=== PATIENT | male | born 1985 | race Caucasian/White ===

== ENCOUNTER 2018-12-23 19:37 | Emergency (ER) | payer OTHER, SELFPAY ==
[2018-12-23 19:45] VITALS: BP 106/55; PULSE 67; RESP 32; TEMP 36.4; O2SAT 100
--- NOTE | 2018-12-23 19:54 | ED.GENADUL_ITS ---
Discharge Plan Disposition Patient Disposition: HOME Condition: Good Discharge Details Chief Complaint: Laceration Clinical Impression: Finger fracture Primary Care Provider: Yosvany Perez ED Provider: Vasile Saunders Home Meds and New Rx's Prescriptions: New hydrocodone-acetaminophen [Palmer] 7.5-325 mg tablet 1 tab PO Q8H PRN (Reason: pain) Qty: 10 RF: 0 cephalexin [Keflex] 500 mg capsule 500 mg PO QID 10 Days Qty: 40 RF: 0 No Action ibuprofen 800 mg tablet 800 mg PO Q8H PRN (Reason: Pain) Qty: 90 RF: 0 Discharge Instructions Instructions: Finger Fracture (ED) Additional Instructions: You have fractured the distal tip of your thumb. Please keep the splint on at all times. Please change the bandage daily. Please take the antibiotic as directed. Please take the pain medication as needed. You can add an additional 500 mg of Tylenol every 6 hours with the pain medication. If you notice any worsening of your symptoms, or any new symptoms such as change in color for your fingertip, change in temperature for your fingertip vomiting, diarrhea, fever, chills, shortness of breath, chest pain, numbness, weakness, or fainting , please return immediately to the emergency department for reevaluation. Please follow up with your primary care provider as soon as possible for reassessment and reevaluation. As always, it was a pleasure participating in your medical care today. Referrals: Julian Longoria MD [ [facility] STAFF PHYSICIAN] - Medical Decision Making This is a 33-year-old male who presents today for evaluation of notable trauma to his right dominant hand on the thumb. He had a crush injury to the distal tip. Notable laceration fracture of both the nail in the distal tip of the thumb. Unable to flex or extend it. Sensation notably diminished. Concern for laceration in conjunction with fracture. We will get an x-ray for further evaluation. Digital block was performed with a lidocaine bupivacaine mixture and the patient tolerated this well. Tetanus is up-to-date. 9:06 PM X-ray shows evidence of fracture of the distal phalanx at the distal tip for the thumb. Patient still has notable difficulty flexing. He is able to slightly extend. The images in case was discussed with Dr. Longoria. He agrees with the current plan of suturing, antibiotics and outpatient follow-up. For simple interrupted sutures were placed, patient tolerated this well. The patient was then bandaged and splinted. We had a long discussion regarding red flags which to immediately return for, including the importance of orthopedic follow-up. I have extensively reviewed the treatment plan and discharge instructions with the patient and their family. I have addressed all patient concerns at this time. The patient and family was made aware of what symptoms to monitor for that would warrant a return to the emergency department. Discussed the plan with the patient and family, they demonstrate verbal understanding and agreement with our assessment and plan at this time. FINDINGS: Bones/joints: Nondisplaced fracture of tuft of first distal phalanx. No subluxation. Soft tissues: Soft tissue swelling about the fracture. IMPRESSION: 1. Fracture of first distal phalanx. 2. Soft tissue swelling. Thank you for allowing us to participate in the care of your patient. Dictated and Authenticated by: Jayden Pearson DO 12/23/2018 8:38 PM Eastern Time ([place] & [place]) HPI General Date/Time Provider Initiated Documentation: 12/23/18 19:50 . HPI Narrative: This is a 33-year-old male who is [id number] who presents today for right thumb pain. Within an hour prior to arrival the patient claims that the distal tip of his right thumb a piece of machinery. He immediately came to the ER for assessment. He is unable to move the thumb secondary to pain in the nature of the injury. He does not feel anything in the tip except for severe pain. He is not on any blood thinners. Tetanus shot was updated within the past 2 years. He denies any pain in the hand, other 4 fingers, wrist or any other component of his body. He denies any other complaints at this time. No other modifying factor. Related Data Home Medications Medication Instructions Recorded Confirmed ibuprofen 800 mg tablet 800 mg PO Q8H PRN #90 tab 11/09/18 11/09/18 cephalexin [Keflex] 500 mg PO QID 10 Days #40 cap 12/23/18 hydrocodone-acetaminophen [Palmer] 1 tab PO Q8H PRN #10 tab 12/23/18 Previous Rx's Medication Instructions Recorded ibuprofen 800 mg tablet 800 mg PO Q8H PRN #90 tab 11/09/18 cephalexin [Keflex] 500 mg PO QID 10 Days #40 cap 12/23/18 hydrocodone-acetaminophen [Palmer] 1 tab PO Q8H PRN #10 tab 12/23/18 Allergies Allergy/AdvReac Type Severity Reaction Status Date / Time No Known Allergies Allergy Verified 11/09/18 13:02 General Stated Complaint: Laceration THAIS: 3 Review of Systems Review of Systems All systems reviewed & are unremarkable except as noted in HPI and below PFSH Social History (Updated 11/09/18 @ 18:24 by Sandra Bergman NP) Smoking/Tobacco Use Status: Current every day Tobacco Type: cigarettes Smoking cigarettes per day: 10 Alcohol Intake: current Alcohol Intake frequency: 3 or more drinks per day Drug use: Occasionally Substance use type: former substance user Date of last use: 2016 - percocet and marijuana Counseling given: Yes Do you feel safe at home: Yes Do you feel safe in your relationship?: Yes Exam Narrative Exam Narrative: 1.Const: Well-nourished, Well-developed, appearing stated age 2.Eyes: PERRL, no conjunctival injection, and symmetrical lids. 3.ENT: Atraumatic external nose and ears. Moist MM. Neck: Symmetric, trachea midline, No thyromegaly. 4.CVS: +S1/S2, No murmurs or gallops. Peripheral pulses 2+ and equal in all extremities. Brisk capillary refill in all extremities. 5.RESP: Unlabored respiratory effort. Clear to auscultation bilaterally. No wheezes rales or rhonchi 6.GI: Soft, Nontender/Nondistended, No hepatosplenomegaly. No guarding or rebound. 7.MSK: Notable deformity of the patient's right thumb. The nail is bisected with a laceration extending towards the palmar aspect of the hand midline for the thumb. Total length of laceration including the nail is roughly 2 cm. Patient is unable to flex or extend the thumb. Moderate pain at the interphalangeal joint as well as the metacarpal phalangeal joint. Minimal bleeding. All other fingers are normal with no signs of trauma, decreased sensation, or other abnormality. Normal flexion and extension of all fingers. No tenderness in the hand or at the anatomical snuffbox. 8.Skin: Please refer to musculoskeletal for description. 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 Sensation grossly intact, no focal neurologic deficits, except for a lack of sensation in the distal tip of the finger. 10.Psych: (AAO) x3. Appropriate mood and affect Course Vital Signs Temperature 36.4 C 12/23/18 19:45 Pulse 67 12/23/18 19:45 Respiratory Rate 32 H 12/23/18 19:45 Blood Pressure 106/55 L 12/23/18 19:45 Pulse Oximetry 100 12/23/18 19:45 Temperature 36.4 C 12/23/18 19:45 Pulse 67 12/23/18 19:45 Respiratory Rate 32 H 12/23/18 19:45 Respiratory Effort 12/23/18 19:48 Blood Pressure 106/55 L 12/23/18 19:45 Pulse Oximetry 100 12/23/18 19:45 Oxygen Delivery Method Room Air 12/23/18 19:45 Oxygen Flow Rate 0 12/23/18 19:45 Pain Level 10 12/23/18 19:48
[2018-12-23 20:04] VITALS: BP 97/48; PULSE 65; RESP 20; O2SAT 100
--- NOTE | 2018-12-23 20:17 | DI.RAD_ITS ---
SYMPTOM/DIAGNOSIS: CRUSH INJURY, PAIN RIGHT THUMB: Three views were obtained. There is mildly comminuted, mildly displaced fracture of the tuft of the distal phalanx of the thumb with associated soft tissue defect. No additional fracture is seen.
[2018-12-23] MEDS: Ibuprofen 800 MG TAB PO (20:24)
[2018-12-23] MEDS: Cephalexin 500 MG CAP (20:24)
[2018-12-23] MEDS: Acetaminophen 500 MG TAB 1000 MG PO (20:24)
--- NOTE | 2018-12-23 20:38 | DI.VRAD_ITS ---
EXAM: XR Right Finger(s) EXAM DATE/TIME: 12/23/2018 7:51 PM CLINICAL HISTORY: 33 years old, male; Other: Crush injury to RT thumb TECHNIQUE: Imaging protocol: XR Right fingers. Views: Minimum 2 views. COMPARISON: No relevant prior studies available. FINDINGS: Bones/joints: Nondisplaced fracture of tuft of first distal phalanx. No subluxation. Soft tissues: Soft tissue swelling about the fracture. IMPRESSION: 1. Fracture of first distal phalanx. 2. Soft tissue swelling. Dictated and Authenticated by: Jayden Pearson MD. Ordering:YUKI Burnette MD
--- NOTE | 2018-12-23 20:45 | NUR.NOTE ---
Nursing Note: pt soaking in hepaclens.
[2018-12-23 21:04] VITALS: BP 103/49; PULSE 64; RESP 20; O2SAT 98
[2018-12-23 21:27] VITALS: BP 103/49; PULSE 64; RESP 20; O2SAT 98
== END 2018-12-23 21:27 | disposition home or self-care (01) ==
PROVIDERS: Emergency Provider Student in an Organized Health Care Education/Training Program; PCP Family Medicine
DX: S67.01XA Crushing injury of right thumb, initial encounter (principal); S62.524A Nondisplaced fracture of distal phalanx of right thumb, initial encounter for closed fracture; S61.111A Laceration without foreign body of right thumb with damage to nail, initial encounter; W23.0XXA Caught, crushed, jammed, or pinched between moving objects, initial encounter; R20.0 Anesthesia of skin; Y99.0 Civilian activity done for income or pay
CPT/HCPCS: 12001; 26750; 73140

== ENCOUNTER 2019-07-30 00:10 | Emergency (ER) | payer OTHER, SELFPAY ==
[2019-07-30 00:31] VITALS: BP 120/58; PULSE 66; RESP 16; TEMP 36.9; O2SAT 98
--- NOTE | 2019-07-30 00:41 | ED.GENADUL_ITS ---
Discharge Plan Disposition Patient Disposition: HOME Condition: Good Discharge Details Chief Complaint: RespSymp Clinical Impression: URI (upper respiratory infection), Otitis media, Chest congestion Primary Care Provider: Yosvany Perez ED Provider: Vasile Saunders Home Meds and New Rx's Prescriptions: New amoxicillin-pot clavulanate [Augmentin] 875-125 mg tablet 1 tab PO BID Qty: 14 RF: 0 loratadine 10 mg capsule 10 mg PO DAILY Qty: 20 RF: 0 Discharge Instructions Instructions: Otitis Media (ED), Upper Respiratory Infection (ED) Additional Instructions: At this time you have evidence of a mild ear infection, as well as notable congestion. The antibiotic that I will use for your ear infection would also cover any pneumonia, however I do not see any evidence of pneumonia at this time. I would recommend stopping smoking to the best of your ability as soon as possible. If you notice any worsening of your symptoms, or any new symptoms such as vomiting, diarrhea, fever, chills, shortness of breath, chest pain, numbness, weakness, or fainting , please return immediately to the emergency department for reevaluation. Please follow up with your primary care provider as soon as possible for reassessment and reevaluation. As always, it was a pleasure participating in your medical care today. Referrals: Yosvany Perez. [Primary Care Provider] - Discharge Data Discharge Date/Time-TO BE ENTERED AT DEPARTURE: 07/30/19 00:55 Medical Decision Making 34-year-old male with past medical history of tobacco abuse who presents today for evaluation of cough, congestion, ear pain and mild sore throat. He denies any fever but does admit to intermittent chills. He denies any hemoptysis but does admit to intermittent brown sputum. He denies any chest pain, chest tightness, or significant shortness of breath. Denies PE risk factors such as recent long car rides, immobilization, recent surgery, prior history of DVT or PE, family history of PE or DVT, morbid obesity, exogenous estrogen and smoking, hemoptysis, history of cancer. The patient denies any recent foreign travel or contact with recent immigrants, Travelers, or peoples of [place] or [facility]. The patient denies any recent travel to high risk countries or high risk areas in the [place], or other areas of noted or significant coronavirus infection. No other complaints at this time. Physical exam is notably unremarkable aside for his ENT exam which shows mild erythema the posterior oropharynx, and consistent with strep, peritonsillar abscess or other significant abnormality. He does have mild effusion and minimal bulging of his tympanic membranes bilaterally. Signs and symptoms clinically consistent with mild otitis media, bedside ultrasound shows no evidence of significant consolidation, or other abnormality for lung exam. We did discuss options of chest x-ray however the patient would like to hold off on any radiographic imaging at this time. Patient will be treated with loratadine, Augmentin for his ear infection, he has been given an inhaler here in the ED with an spacer. Recommended stopping smoking. Discussed red flags for which to return. I have extensively reviewed the treatment plan and discharge instructions with the patient. I have addressed all patient concerns at this time. The patient was made aware of what symptoms to monitor for that would warrant a return to the emergency department. Discussed the plan with the patient, they demonstrate verbal understanding and agreement with our assessment and plan at this time. HPI General Date/Time Provider Initiated Documentation: 07/30/19 00:31 . HPI Narrative: 34-year-old male with past medical history of tobacco abuse who presents today for evaluation of cough, congestion, ear pain and mild sore throat. He denies any fever but does admit to intermittent chills. He denies any hemoptysis but does admit to intermittent brown sputum. He denies any chest pain, chest tightness, or significant shortness of breath. Denies PE risk factors such as recent long car rides, immobilization, recent surgery, prior history of DVT or PE, family history of PE or DVT, morbid obesity, exogenous estrogen and smoking, hemoptysis, history of cancer. The patient denies any recent foreign travel or contact with recent immigrants, Travelers, or peoples of [place] or [facility]. The patient denies any recent travel to high risk countries or high risk areas in the [place], or other areas of noted or significant coronavirus infection. Related Data Home Medications Medication Instructions Recorded Confirmed amoxicillin-pot clavulanate 1 tab PO BID #14 tab 07/30/19 [Augmentin] loratadine 10 mg PO DAILY #20 cap 07/30/19 Previous Rx's Medication Instructions Recorded amoxicillin-pot clavulanate 1 tab PO BID #14 tab 07/30/19 [Augmentin] loratadine 10 mg PO DAILY #20 cap 07/30/19 Allergies Allergy/AdvReac Type Severity Reaction Status Date / Time No Known Allergies Allergy Verified 03/14/19 15:23 General Stated Complaint: RespSymp THAIS: 4 Review of Systems All systems reviewed & are unremarkable except as noted in HPI and below PFSH Social History Smoking/Tobacco Use Status: Current every day Tobacco Type: cigarettes Alcohol Intake: current Alcohol Intake frequency: 3 or more drinks per day Drug use: Occasionally Substance use type: former substance user Date of last use: 2016 - percocet and marijuana Counseling given: Yes Current gender identity: male Do you feel safe at home: Yes Do you feel safe in your relationship?: Yes Exam Narrative Exam Narrative: 1.Const: Well-nourished, Well-developed, appearing stated age 2.Eyes: PERRL, no conjunctival injection, and symmetrical lids. 3.ENT: Atraumatic external nose and ears. Moist MM. Neck: Symmetric, trachea midline, No thyromegaly. Mild erythema in the posterior oropharynx. Tympanic membranes bilaterally demonstrate mild redness, mild effusion, minimal bulging. Patient demonstrates good movement of cervical neck. There is no nuchal rigidity, no nuchal tenderness. Patient is able to flex the neck without any difficulty or significant pain. Negative Kernig's and Brudzinski sign. 4.CVS: +S1/S2, No murmurs or gallops. Peripheral pulses 2+ and equal in all extremities. Brisk capillary refill in all extremities. 5.RESP: Unlabored respiratory effort. No significant wheezes rales or rhonchi. Bedside ultrasound showed no evidence of significant B-lines or consolidation. 6.GI: Soft, Nontender/Nondistended, No hepatosplenomegaly. No guarding or rebound. 7.MSK: Normocephalic/Atraumatic, Extremities w/o deformity or ttp No cyanosis or clubbing, Normal movement of all extremities 8.Skin: Warm, Dry. No rashes or lesions. 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 Sensation grossly intact, no focal neurologic deficits. 10.Psych: (AAO) x3. Appropriate mood and affect Course Vital Signs Vital signs: Vital Signs Temperature 36.9 C 07/30/19 00:31 Pulse 66 07/30/19 00:31 Respiratory Rate 16 07/30/19 00:31 Blood Pressure 120/58 L 07/30/19 00:31 Pulse Oximetry 98 07/30/19 00:31 Temperature 36.9 C 07/30/19 00:31 Temperature Source Skin 07/30/19 00:31 Pulse 66 07/30/19 00:31 Respiratory Rate 16 07/30/19 00:31 Respiratory Effort 07/30/19 00:35 Blood Pressure 120/58 L 07/30/19 00:31 Blood Pressure Position Sitting 07/30/19 00:31 Pulse Oximetry 98 07/30/19 00:31 Oxygen Delivery Method Room Air 07/30/19 00:31 Oxygen Flow Rate 0 07/30/19 00:31 Comment 07/30/19 00:31
[2019-07-30] MEDS: Inhaler, Assist Device 1 EACH MC (00:52)
[2019-07-30] MEDS: Albuterol HFA 8 GM 60 PUFF INH IH (00:52)
== END 2019-07-30 00:55 | disposition home or self-care (01) ==
PROVIDERS: Emergency Provider Student in an Organized Health Care Education/Training Program; PCP Family Medicine
DX: J06.9 Acute upper respiratory infection, unspecified (principal); H66.93 Otitis media, unspecified, bilateral; R09.89 Other specified symptoms and signs involving the circulatory and respiratory systems; F17.210 Nicotine dependence, cigarettes, uncomplicated
CPT/HCPCS: 99283

== ENCOUNTER 2019-08-15 03:33 | Emergency (ER) | payer OTHER, SELFPAY ==
[2019-08-15 03:37] VITALS: BP 109/76; PULSE 73; RESP 16; TEMP 36.4; O2SAT 98
--- NOTE | 2019-08-15 03:43 | ED.GENADUL_ITS ---
Discharge Plan Disposition Patient Disposition: HOME Condition: Stable Discharge Details Chief Complaint: Laceration Clinical Impression: Laceration of forearm, right Primary Care Provider: Yosvany Perez ED Provider: Sanchez Pardo Home Meds and New Rx's Prescriptions: No Action No Known Home Meds RF: 0 Discharge Instructions Additional Instructions: if you have spreading redness from the wound or yellow/white discharge return to the emergency department several times a day and when it gets dirty gently clean with soap and water keep covered with dry dressing such as bandaid until healed Medical Decision Making 34 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 No other trauma, no loc. He has a 3cm superficial laceration that does not require sutures. Will have nursing place steri strip and return precautions given Differential Diagnosis Differential Diagnosis: laceration, abrasion HPI General Mode of arrival: ambulatory . Date/Time Provider Initiated Documentation: 08/15/19 03:34 . Limitations to Documentation: no limitations . Information obtained by: patient . History of Present Illness 34 year old M presents to the emergency department with the chief complaint of right forearm laceration, described as moderate, and it has been constant. No relieving factors improve symptom(s), No exacerbating factors reported . Patient did receive the following treatments prior to arrival, none Related Data Home Medications Medication Instructions Recorded Confirmed Unknown [No Known Home Meds] 08/15/19 08/15/19 Allergies Allergy/AdvReac Type Severity Reaction Status Date / Time No Known Allergies Allergy Verified 03/14/19 15:23 General Stated Complaint: Laceration THAIS: 4 Review of Systems All systems reviewed & are unremarkable except as noted in HPI and below Constitutional Constitutional: Denies chills, Denies fever(s) and Denies weakness Cardiovascular Cardiovascular: Denies chest pain and Denies dyspnea Respiratory Respiratory: Denies cough and Denies dyspnea Gastrointestinal Gastrointestinal: Denies abdominal pain, Denies nausea and Denies vomiting Musculoskeletal Musculoskeletal: Denies joint swelling Neurologic Neurologic: Denies weakness [facility] Social History Smoking/Tobacco Use Status: Current every day Tobacco Type: cigarettes Alcohol Intake: current Alcohol Intake frequency: 3 or more drinks per day Drug use: Occasionally Substance use type: former substance user Date of last use: 2017 - percocet and marijuana Counseling given: Yes Current gender identity: male Do you feel safe at home: Yes Do you feel safe in your relationship?: Yes Exam Const General: no acute distress Orientation: alert HENMT Head: normal to inspection Ears: external ears normal General nose exam: external nose normal Mouth: moist mucous membranes Eyes General: appearance normal, both eyes and all related structures Neck Neck: normal visual inspection Resp Effort & Inspection: normal respiratory effort and able to speak in complete sentences Cardio Rate: regular rate Skin General skin exam: no rashes or lesions noted Neuro General: patient alert and patient oriented x3 Extrem General: full ROM and capillary refill normal Psych Mental Status: mental status grossly normal Course Vital Signs Vital signs: Vital Signs Temperature 36.4 C L 08/15/19 03:37 Pulse 73 08/15/19 03:37 Respiratory Rate 16 08/15/19 03:37 Blood Pressure 109/76 08/15/19 03:37 Pulse Oximetry 98 08/15/19 03:37 Temperature 36.4 C L 08/15/19 03:37 Pulse 73 08/15/19 03:37 Respiratory Rate 16 08/15/19 03:37 Respiratory Effort 08/15/19 03:39 Blood Pressure 109/76 08/15/19 03:37 Blood Pressure Position Sitting 08/15/19 03:37 Pulse Oximetry 98 08/15/19 03:37 Oxygen Delivery Method Room Air 08/15/19 03:37 Oxygen Flow Rate 0 08/15/19 03:37
--- NOTE | 2019-08-15 03:54 | NUR.NOTE ---
right forearm wound cleaned with NS. Steri strips, dsd applied.,
== END 2019-08-15 03:55 | disposition home or self-care (01) ==
LOC: ER 03:59
PROVIDERS: Emergency Provider Emergency Medicine; PCP Family Medicine
DX: S51.811A Laceration without foreign body of right forearm, initial encounter (principal); W31.9XXA Contact with unspecified machinery, initial encounter; Y99.0 Civilian activity done for income or pay
CPT/HCPCS: 99282

== ENCOUNTER 2020-03-18 12:59 | Emergency (ER) | payer SELFPAY ==
[2020-03-18 13:05] VITALS: BP 112/75; PULSE 67; RESP 16; TEMP 36.4; O2SAT 99
--- NOTE | 2020-03-18 13:15 | DI.RAD_ITS ---
EXAM: XR THUMB RT CLINICAL HISTORY: pain, jammed thumb. TECHNIQUE: 2D digital imaging was performed. COMPARISON: CR XR thumb RT from 12/23/2018 FINDINGS: BONES: There is an osseous fragment at the tip of the distal phalanx of the thumb. This may represen t an acute fracture fragment or an old unhealed fracture. Deformity of the terminal tuft of the thum b may reflect sequelae from the patient's prior fracture from 12/23/2018. Acute nondisplaced fracture cannot be excluded. No bony destructive lesion is seen. JOINTS: No dislocation present. SOFT TISSUE: Normal. IMPRESSION: Deformity of the distal phalanx of the thumb which may reflect chronic unhealed fracture versus acute fracture. DATA REPOSITORY: RADIATION DOSE DELIVERED:
--- NOTE | 2020-03-18 13:20 | W.ED.GENAD ---
Discharge Plan Disposition Patient Disposition: HOME Condition: Stable Discharge Details Clinical Impression: Sprain of metacarpophalangeal joint of right thumb, initial encounter Primary Care Provider: Yosvany Perez ED Provider: Fantasma Mclean Home Meds and New Rx's Prescriptions: No Action No Known Home Meds RF: 0 Discharge Instructions Instructions: Skier's Thumb (ED) Additional Instructions: Please take ibuprofen over the counter. Take 600mg by mouth every 6 hours as needed for pain. Please use splint for the next 1 week. Keep splint clean, dry, intact. No use of right hand until pain completely resolves. Please contact your primary care physician to arrange follow-up. Return to the ER for any worsening or new concerning symptoms. Medical Decision Making 34-year-old male here after jamming his right thumb 3 days ago with increasing pain and swelling. Tender right first MCP. No tenderness distal digit. Neurovascular intact distally. He is able to flex oppose thumb but with pain. X-ray of the right thumb reviewed and interpreted by radiology: IMPRESSION: Lucencies in the distal aspect of the distal phalanx of the thumb may be due to acute fracture or unhealed chronic fracture. Thumb splint was made with fiberglass and applied by me. Patient neurovascular intact distally post splint application. Usual customary discharge instructions reviewed with the patient. HPI General Mode of arrival: ambulatory. Date/Time Provider Initiated Documentation: 03/18/20 13:05. Limitations to Documentation: no limitations. Information obtained by: patient. HPI Narrative: 34-year-old male presents with chief complaint of thumb pain. Patient notes 3 days ago he tripped and fell and landed on his right thumb and jammed it. He initially was able to move his thumb but it become more stiff and painful and now has limited flexion. No associated numbness or tingling. No other injury. Of note patient did fracture this time about a year ago. Related Data Home Medications Medication Instructions Recorded Confirmed Unknown [No Known Home Meds] 03/18/20 03/18/20 Allergies Allergy/AdvReac Type Severity Reaction Status Date / Time No Known Allergies Allergy Verified 03/18/20 13:09 General Stated Complaint: Orthopedic THAIS: 4 Review of Systems Musculoskeletal Musculoskeletal: Reports as per HPI Neurologic Neurologic: Reports as per HPI [facility] Medical History (Updated 03/18/20 @ 14:12 by Fantasma Mclean MD) Seasonal allergic rhinitis Family History Mother Substance abuse Heart disease Father No problems noted. Sister No problems noted. Brother No problems noted. Daughter No problems noted. Daughter No problems noted. Social History Smoking/Tobacco Use Status: Current every day Tobacco Type: cigarettes Smoking risk assessment performed?: Yes Alcohol Intake: current Alcohol Intake frequency: a few times a month Drug use: Occasionally Substance use type: former substance user Date of last use: 2016 - percocet and marijuana Counseling given: Yes Current gender identity: male Do you feel safe at home: Yes Do you feel safe in your relationship?: Yes Exam Const General: cooperative and no acute distress Extrem Right upper extremity: hand (Thumb tender to palpation MCP with swelling, limited ROM secondary to pain) Details: neuromotor exam normal and neurosensory exam normal; no unusual warmth Course Vital Signs Vital signs: Vital Signs Temperature 36.4 C L 03/18/20 13:05 Pulse 67 03/18/20 13:05 Respiratory Rate 16 03/18/20 13:05 Blood Pressure 112/75 03/18/20 13:05 Pulse Oximetry 99 03/18/20 13:05 Temperature 36.4 C L 03/18/20 13:05 Temperature Source Skin 03/18/20 13:05 Pulse 67 03/18/20 13:05 Respiratory Rate 16 03/18/20 13:05 Respiratory Effort Non-Labored 03/18/20 13:05 Blood Pressure 112/75 03/18/20 13:05 Blood Pressure Position Sitting 03/18/20 13:05 Pulse Oximetry 99 03/18/20 13:05 Oxygen Delivery Method Room Air 03/18/20 13:05 Oxygen Flow Rate 0 03/18/20 13:05 Pain Level 5 03/18/20 13:09
--- NOTE | 2020-03-18 13:50 | DI.VRAD_ITS ---
PROCEDURE INFORMATION: Exam: XR Right Finger(s) Exam date and time: 03/18/2020 1:16 PM Age: 34 years old Clinical indication: Injury or trauma; Other: Jammed thumb; Work related; Blunt trauma (contusions or hematomas); Finger; Right TECHNIQUE: Imaging protocol: XR Right fingers. Views: Minimum 2 views. COMPARISON: CR XR thumb RT 12/23/2018 8:07 PM FINDINGS: Bones/joints: Lucencies in the distal aspect of the distal phalanx of the thumb may be due to acute fracture or unhealed chronic fracture. . Soft tissues: Soft tissue swelling of the thumb IMPRESSION: Lucencies in the distal aspect of the distal phalanx of the thumb may be due to acute fracture or unhealed chronic fracture. . Dictated and Authenticated by: Marlen Dia MD. Ordering:ALON Meek MD
== END 2020-03-18 14:21 | disposition home or self-care (01) ==
PROVIDERS: Emergency Provider Student in an Organized Health Care Education/Training Program; PCP Family Medicine
DX: S63.641A Sprain of metacarpophalangeal joint of right thumb, initial encounter (principal); W01.0XXA Fall on same level from slipping, tripping and stumbling without subsequent striking against object, initial encounter
CPT/HCPCS: 29130; 99283; 73140

== ENCOUNTER 2020-07-05 14:42 | Emergency (ER) | payer SELFPAY ==
[2020-07-05 14:48] VITALS: BP 132/86; PULSE 68; RESP 20; TEMP 36.6; O2SAT 98
--- NOTE | 2020-07-05 15:16 | ED.GENADUL_ITS ---
Discharge Plan Disposition Patient Disposition: HOME Condition: Good Discharge Details Clinical Impression: Dental infection Primary Care Provider: Yosvany Perez ED Provider: Tana Wilson Home Meds and New Rx's Prescriptions: New penicillin V potassium 500 mg tablet 500 mg PO QID Qty: 40 RF: 0 No Action acetaminophen 500 mg Tablet 500 mg PO QID PRNRF: 0 ibuprofen 200 mg Tablet 600 mg PO Q6H PRNRF: 0 Discharge Instructions Instructions: Dental Abscess (ED) Additional Instructions: [facility] Take antibiotic as prescribed until completed Gargling with warm salt water me help your pain Ibuprofen 600 mg every 8 hours with food Tylenol 650 mg every 4-6 hours Medical Decision Making Nerve block was attempted, and patient did not have analgesia with middle alveolar nerve block I did give the patient 4 tablets of oxycodone and penicillin for home No clinical evidence of facial cellulitis I did discuss risk of addiction and patient consented to these risks No clinical evidence of Daniel's angina, will follow up with dentist Differential Diagnosis Differential Diagnosis: Dental abscess, dental fracture, Daniel's angina, facial cellulitis Medical Records Medical records reviewed: Yes I reviewed the patient's medical records. HPI This 35-year-old male presents with reports of right-sided abdominal pain. Denies chest pain or shortness of breath. Pain for the past 4 days. He states: However he is been gargling with hydrogen peroxide . And he states that actually improved. He denies dizziness or weakness. Denies fever or chills. Pain with chewing reportedly. General Date/Time Provider Initiated Documentation: 07/05/20 14:44 . Related Data Home Medications Medication Instructions Recorded Confirmed acetaminophen 500 mg PO QID PRN 07/05/20 07/05/20 ibuprofen 600 mg PO Q6H PRN 07/05/20 07/05/20 penicillin V potassium 500 mg PO QID #40 tab 07/05/20 Previous Rx's Medication Instructions Recorded penicillin V potassium 500 mg PO QID #40 tab 07/05/20 Allergies Allergy/AdvReac Type Severity Reaction Status Date / Time No Known Allergies Allergy Verified 07/05/20 14:54 General Stated Complaint: DentalOral THAIS: 4 Review of Systems Narrative: Review of systems obtained x7 aside from where indicated in HPI, specifically no chest pain, shortness of breath, difficulty swallowing All systems reviewed & are unremarkable except as noted in HPI and below PFSH Medical History (Updated 07/05/20 @ 15:44 by VICENTA Rich) Seasonal allergic rhinitis Family History Mother Substance abuse Heart disease Father No problems noted. Sister No problems noted. Brother No problems noted. Daughter No problems noted. Daughter No problems noted. Social History Smoking/Tobacco Use Status: Current every day Tobacco Type: cigarettes Smoking risk assessment performed?: Yes Alcohol Intake: current Alcohol Intake frequency: a few times a month Drug use: Occasionally Substance use type: former substance user Date of last use: 2016 - percocet and marijuana Counseling given: Yes Current gender identity: male Do you feel safe at home: Yes Do you feel safe in your relationship?: Yes Exam Const General: cooperative HENMT Teeth image: 1. Fracture noted, no evidence of deep space infection, no trismus, uvula midline, no soft palate induration Resp Effort & Inspection: normal respiratory effort Cardio Rate: regular rate Rhythm: regular rhythm Course Vital Signs Vital signs: Vital Signs Temperature 36.6 C 07/05/20 14:48 Pulse 68 07/05/20 14:48 Respiratory Rate 20 07/05/20 14:48 Blood Pressure 132/86 07/05/20 14:48 Pulse Oximetry 98 07/05/20 14:48 Temperature 36.6 C 07/05/20 14:48 Temperature Source Oral 07/05/20 14:48 Pulse 68 07/05/20 14:48 Respiratory Rate 20 07/05/20 14:48 Respiratory Effort Non-Labored 07/05/20 14:52 Blood Pressure 132/86 07/05/20 14:48 Blood Pressure Position Sitting 07/05/20 14:48 Pulse Oximetry 98 07/05/20 14:48 Oxygen Delivery Method Room Air 07/05/20 14:48 Oxygen Flow Rate 0 07/05/20 14:48 Pain Level 7 07/05/20 14:48
[2020-07-05] MEDS: Penicillin V POTASSIUM 500 MG TAB, 4 TABS/BTL PO (16:05)
== END 2020-07-05 16:14 | disposition home or self-care (01) ==
PROVIDERS: Emergency Provider Physician Assistant; PCP Family Medicine
DX: K04.7 Periapical abscess without sinus (principal)
CPT/HCPCS: 99283

== ENCOUNTER 2020-07-06 11:14 | Emergency (ER) | payer SELFPAY ==
[2020-07-06 11:20] VITALS: BP 118/73; PULSE 75; RESP 20; TEMP 37.3; O2SAT 98
--- NOTE | 2020-07-06 11:25 | ED.GENADUL_ITS ---
Discharge Plan Disposition Patient Disposition: HOME Condition: Stable Discharge Details Clinical Impression: Dental infection, Dental abscess Primary Care Provider: Yosvany Perez ED Provider: Holli Santiago Iraan Meds and New Rx's Prescriptions: New amoxicillin-pot clavulanate [Augmentin] 875-125 mg tablet 1 tab PO BID Qty: 14 RF: 0 oxycodone 5 mg tablet 5 mg PO QID PRN (Reason: pain) Qty: 5 RF: 0 Continued acetaminophen 500 mg Tablet 500 mg PO QID PRNRF: 0 ibuprofen 200 mg Tablet 600 mg PO Q6H PRNRF: 0 Discontinued penicillin V potassium 500 mg tablet 500 mg PO QID Qty: 40 RF: 0 Discharge Instructions Instructions: Dental Abscess (ED) Additional Instructions: Your abscess was drained here today. We stop the penicillin take the Augmentin as prescribed. Even if symptoms improve, please take the entire course. Please encourage water intake. [place] your teeth frequently. Please follow-up as soon as possible with your dentist. A list of local dentist is attached. You may continue to use Tylenol and/or ibuprofen as needed for discomfort. Please take as directed. You may also augment this with the oxycodone as prescribed. Do not drive while taking this medication. Keep this in a safe place and take only as directed if you develop fever/chills, increased swelling or other new/worsening symptoms please seek care urgently once again. Referrals: Yosvany Perez. [Primary Care Provider] - Discharge Data Discharge Date/Time-TO BE ENTERED AT DEPARTURE: 07/06/20 14:05 Medical Decision Making Patient is a 35-year-old male presenting today with chief complaint of right upper dental pain. He was seen here yesterday at which time he was started on penicillin and was given oxycodone for pain management. No abscess was noted at that time. Patient followed up with his primary care today who was concerned that patient had swelling of the hard palate. [place] the patient should have imaging and possible drainage. Patient denies any fevers or chills. The pain has progressively worsened since being evaluated yesterday. On exam, patient appears nontoxic. Vital signs are stable. He has poor dentition with a broken #5 tooth. Lingual aspect she does have a fluctuant area, this does appear fairly small. No erythema, no drainage. Patient is tender over this area. The patient symptoms seem to have significantly worsened over the past 24 hours despite appropriate antibiotic treatment, I do feel that imaging would be warranted as was initially discussed with by primary care for further evaluation. Patient has no nuchal rigidity, no meningismus. No pain over the sinuses. No appreciable external swelling. Posterior oropharynx without significant abnormality, no tonsillar swelling, uvula is midline, no trismus. And I also discussed the block with drainage. Labs reviewed. Patient is leukocytosis white count 14. CMP without significant abnormality. FINDINGS: There is mucosal thickening in the right maxillary sinus. There is mild mucosal thickening in the left sphenoid and a few bilateral maxillary sinuses as well as the frontal sinus on the right. The mastoid air cells appear clear. The vasculature appears normal. The visualized portions of the brain are unremarkable. The cervical spine appears intact. There is no narrowing of the airway. The epiglottis appears normal. The visualized portions of the brain are unremarkable. The orbits appear normal. The parotid and submandibular glands appear normal. There have been multiple tooth extractions. There is a lucency around the roots of the left 1st mandibular molar tooth. There is an obvious dental cavity. There is a question of a small adjacent abscess lateral to the mandible at this level. The left 2nd mandibular molar tooth also shows a dental lionel. There is a dental lionel seen in 1st bicuspid of the right maxilla. There is a periapical lucency. Other dental caries are seen in the maxillary teeth which do not show apical lucencies. IMPRESSION: Multiple dental caries. Apical lucencies around the left 1st mandibular molar and right 1st maxillary bicuspid. Question of a small abscess adjacent to the left side of the mandible. I discussed the findings with the patient. The abscess question on the left side of the mandible is not not correlated clinically. Patient continues to have findings suggest a abscess over the hard palate in the right upper aspect adjacent to the #5 tooth. Patient I did discuss risk/benefits of the block and he is declined at this time. Would prefer topical anesthetic and needle aspiration. Please see procedure note. Patient I discussed risk/benefits as well as expected procedural steps associated with drainage. He did tolerate this fairly well. I was unable to aspirate any fluid. However, after the initial laceration, I did have the patient swish and spit frequently and try to second any discharge that may be coming out. He was able to do so himself that he had a taken discharge from [facility] and noted that the area of swelling did shrink in size. Patient be transitioned to Augmentin. Encourage hydration. Advised Tylenol and/or ibuprofen as needed for discomfort. Patient has been having diff iculty sleeping associated with his discomfort and did run out of his oxycodone he was prescribed yesterday. Will refill #5 for the patient. Advised he Does not drive while take this medication. We discussed safe practices associated with this medication. I encourage close follow-up with the dentist. He states that he has been working on this but was unable to get a evaluation in the next few weeks. Return precautions were discussed. All questions concerns were addressed and he is in agreement this plan. HPI General Mode of arrival: ambulatory . Date/Time Provider Initiated Documentation: 07/06/20 11:22 . Limitations to Documentation: no limitations . Information obtained by: patient, RN notes reviewed and old records reviewed . History of Present Illness 35 year old M presents to the emergency department with the chief complaint of right upper dental pain, described as moderate, with intensity rated at 5. Quality is described as aching, and is localized to the mouth. Patient reports no radiation. Patient started experiencing this day(s) and it has been constant. Medication improves symptom(s), No exacerbating factors reported . Patient notes denies fever/chills, nausea/vomiting and rash. Patient did receive the following treatments prior to arrival, other (penicillin and oxycodone) Related Data Home Medications Medication Instructions Recorded Confirmed acetaminophen 500 mg PO QID PRN 07/05/20 07/06/20 ibuprofen 600 mg PO Q6H PRN 07/05/20 07/06/20 amoxicillin-pot clavulanate 1 tab PO BID #14 tab 07/06/20 [Augmentin] oxycodone 5 mg PO QID PRN #5 tab 07/06/20 Previous Rx's Medication Instructions Recorded amoxicillin-pot clavulanate 1 tab PO BID #14 tab 07/06/20 [Augmentin] oxycodone 5 mg PO QID PRN #5 tab 07/06/20 Allergies Allergy/AdvReac Type Severity Reaction Status Date / Time No Known Allergies Allergy Verified 07/06/20 11:24 General Stated Complaint: DentalOral THAIS: 3 Review of Systems Constitutional Constitutional: Reports as per HPI, Denies chills, Denies fatigue, Denies fever(s), Denies headache(s) and Denies poor appetite Eyes Eyes: Denies change in vision and Denies irritation ENT Ears, Nose, Mouth, and Throat: Reports as per HPI, Reports dental pain, Denies dysphagia, Denies dizziness, Denies dry mouth, Denies ear discharge, Denies otalgia, Reports facial pain, Denies headache(s), Denies hoarseness, Denies lip swelling, Denies nasal congestion, Denies odynophagia and Denies sore throat Cardiovascular Cardiovascular: Reports as per HPI and Denies chest pain Respiratory Respiratory: Reports as per HPI and Denies cough Gastrointestinal Gastrointestinal: Reports as per HPI, Denies dysphagia, Denies nausea, Denies odynophagia and Denies vomiting Integumentary/Breasts Skin/Breast: Reports as per HPI, Denies erythema, Denies rash and Denies skin pain Neurologic Neurologic: Reports as per HPI, Denies dizziness and Denies headache(s) Endocrine Endocrine: Denies fatigue Allergic/Immunologic Allergic/Immunologic: Denies lip swelling [facility] Medical History (Updated 07/06/20 @ 13:51 by VICENTA James) Seasonal allergic rhinitis Family History Mother Substance abuse Heart disease Father No problems noted. Sister No problems noted. Brother No problems noted. Daughter No problems noted. Daughter No problems noted. Social History Smoking/Tobacco Use Status: Current every day Tobacco Type: cigarettes Smoking risk assessment performed?: Yes Alcohol Intake: current Alcohol Intake frequency: a few times a month Drug use: Occasionally Substance use type: former substance user Date of last use: 2016 - percocet and marijuana Counseling given: Yes Current gender identity: male Do you feel safe at home: Yes Do you feel safe in your relationship?: Yes Exam Const General: cooperative, healthy appearing, comfortable, no acute distress, well developed and well groomed Nutritional Appearance: average body habitus and well nourished Orientation: alert and awake HENWV Head: normal to inspection, normocephalic and atraumatic Ears: hearing grossly normal bilaterally, external ears normal and TM's normal bilaterally General nose exam: external nose normal and nares normal Face and sinus: normal facial exam, sinuses nontender and face symmetric Mouth: oral mucosae normal, lip normal, tongue normal, no muffled voice, no trismus and No restricted motion Teeth and gingiva: poor dentition Teeth image: 1. small area of focal swelling. Broke and dark #5 tooth. Pain over area of swelling. No erythema, no drainage. No abnormality along the buccal side. Throat: posterior oropharynx normal, tonsils normal and uvula midline Eyes General: appearance normal, both eyes and all related structures Neck Neck: normal visual inspection, full ROM, no lymphadenopathy, supple and no anterior neck swelling Resp Effort & Inspection: normal respiratory effort, able to speak in complete sentences and no respiratory distress Auscultation: clear to auscultation bilaterally, no rales, no rhonchi and no wheezes Cardio Rate: regular rate Rhythm: regular rhythm Heart Sounds: S1 normal and S2 normal Skin General skin exam: no rashes or lesions noted Trauma: no lacerations or abrasions Neuro General: patient alert and patient awake Cognition: normal cognition Speech: speech normal Gait: normal gait Psych Appearance: grossly normal and well kempt Mental Status: mental status grossly normal Speech and Movement: speech and movement normal Course Vital Signs Vital signs: Vital Signs Temperature 37.3 C 07/06/20 11:20 Pulse 75 07/06/20 11:20 Respiratory Rate 20 07/06/20 11:20 Blood Pressure 118/73 07/06/20 11:20 Pulse Oximetry 98 07/06/20 11:20 Temperature 37.3 C 07/06/20 11:20 Temperature Source Skin 07/06/20 11:20 Pulse 75 07/06/20 11:20 Respiratory Rate 20 07/06/20 11:20 Respiratory Effort Non-Labored 07/06/20 11:23 Blood Pressure 118/73 07/06/20 11:20 Blood Pressure Position Sitting 07/06/20 11:20 Pulse Oximetry 98 07/06/20 11:20 Oxygen Delivery Method Room Air 07/06/20 11:20 Oxygen Flow Rate 0 07/06/20 11:20 Pain Level 5 07/06/20 11:20 Procedures Abscess I/D Site: Other (intraoral dental abscess) Side (if applicable): Right Sedation/analgesia: None Local Anesthetic: Other Anesthetic (topical ) Technique: Needle Aspiration Amount of fluid expressed (mL): 0 Irrigation: No Packing used?: None
--- NOTE | 2020-07-06 11:30 | DI.CT_ITS ---
EXAM: CT FACIAL W CLINICAL HISTORY: upper right dental infection, swelling of palate. TECHNIQUE: Imaging Protocol: Axial computed tomography images with coronal and sagittal reformatted images were created and reviewed CONTRAST MATERIAL: Intravenous: Omnipaque 350 Contrast volume: 100 cc COMPARISON: No exams were available for comparison FINDINGS: There is mucosal thickening in the right maxillary sinus. There is mild mucosal thickening in the le ft sphenoid and a few bilateral maxillary sinuses as well as the frontal sinus on the right. The mas toid air cells appear clear. The vasculature appears normal. The visualized portions of the brain a re unremarkable. The cervical spine appears intact. There is no narrowing of the airway. The epigl ottis appears normal. The visualized portions of the brain are unremarkable. The orbits appear norm al. The parotid and submandibular glands appear normal. There have been multiple tooth extractions. There is a lucency around the roots of the left 1st alissa bular molar tooth. There is an obvious dental cavity. There is a question of a small adjacent absce ss lateral to the mandible at this level. The left 2nd mandibular molar tooth also shows a dental ca miguelina. There is a dental lionel seen in 1st bicuspid of the right maxilla. There is a periapical lucen cy. Other dental caries are seen in the maxillary teeth which do not show apical lucencies. IMPRESSION: Multiple dental caries. Apical lucencies around the left 1st mandibular molar and right 1st maxillar y bicuspid. Question of a small abscess adjacent to the left side of the mandible. RADIATION DOSE DELIVERED: 470.1mGy.cm Total DLP DATA REPOSITORY: All CT scans at this facility are submitted to the National Radiology Data Registry (NRDR) Dose Index Registry (DIR) with the [employer] (A[employer]). RADIATION OPTIMIZATION: All CT scans at this facility use at least one of these dose optimization te chniques: automated exposure control; mA and/or kV adjustment per patient size (includes targeted exa ms where dose is matched to clinical indication); or iterative reconstruction.
[2020-07-06] MEDS: Lactated Ringers 1,000 ML 1000 ML IV (12:02)
[2020-07-06 12:14] LABS: Abs Immature Grans 0.04 10^3/uL (0.0-0.06); Absolute Basophil Count 0.07 10^3/uL (0.0-0.2); Absolute Lymphocyte Count 2.72 10^3/uL (1.2-3.4); Absolute Monocyte Count 1.62 10^3/uL (0.1-0.8); Absolute Neutrophil Count 9.76 10^3/uL (1.2-6.7); Basophils % 0.5; Eosinophils % 0.7; HCT 43.3 % (40.0-50.0); Immature Grans % 0.3; MCH 30.4 pg (27.0-33.0); MCHC 34.6 % (32.0-36.0); MCV 87.7 fL (80-95); MPV 10.3 fL (8.0-11.0); Monocytes % 11.3; Neutrophils % 68.2; Nucleated RBC 0 %; Platelet Count 247 10^3/uL (130-400); RBC 4.94 10^6/uL (4.36-5.78); RDW 13.1 % (11.8-14.1); RDW-SD 41.8 fL; WBC 14.31 10^3/uL (4.4-10.8)
[2020-07-06 12:19] LABS: ALT 17 U/L (16-63); AST 10 U/L (15-37); Albumin 4.2 g/dL (3.4-5.0); Alkaline Phosphatase 80 U/L (46-116); BUN 13 mg/dL (7-18); Bilirubin, Total 0.9 mg/dL (0.2-1.0); CREATININE 1.2 mg/dL (0.70-1.30); Calcium 8.8 mg/dL (8.5-10.1); Chloride 102 mmol/L (98-107); Glucose 96 mg/dL (74-106); Potassium 4.2 mmol/L (3.5-5.1); Sodium 138 mmol/L (136-145); Total Protein 7.8 g/dL (6.4-8.2)
[2020-07-06] MEDS: Normal Saline - Diluent 50 ML VIAL IV (12:26)
[2020-07-06] MEDS: Omnipaque 350 MG/ML 100 ML BTL IV (12:26)
[2020-07-06 12:42] LABS: Diff Comment Diff Reviewed; RBC Morphology Normal
[2020-07-06] MEDS: Benzocaine 20% Gel 30 GM JAR MM (13:22)
== END 2020-07-06 14:05 | disposition home or self-care (01) ==
PROVIDERS: Emergency Provider Physician Assistant; PCP Family Medicine
DX: K04.7 Periapical abscess without sinus (principal)
CPT/HCPCS: 80053; 96360; 70487; 85025; J3490

== ENCOUNTER 2022-10-17 14:30 | Emergency (ER) | payer SELFPAY ==
[2022-10-17 14:32] VITALS: BP 124/75; PULSE 64; RESP 16; TEMP 36.7; O2SAT 96
--- NOTE | 2022-10-17 14:46 | ED.GENADUL_ITS ---
Discharge Plan Disposition Patient Disposition: Home Discharge Details Clinical Impression: Dental infection, Gingivitis Primary Care Provider: Yosvany Perez ED Provider: Edmund Fofana Home Meds and New Rx's Prescriptions: New chlorhexidine gluconate 0.12 % mouthwash 15 ml mucous membrane BID 14 Days Qty: 473 1RF penicillin V potassium 500 mg tablet 500 mg PO QID 7 Days Qty: 28 0RF Continued acetaminophen 500 mg Tablet 1,000 mg PO QID PRN ibuprofen 200 mg Tablet 600 mg PO Q6H PRN Discharge Instructions Instructions: Dental Abscess (ED) Additional Instructions: Continue to monitor symptoms and return to the emergency department immediately for any new or significant worsening of your condition. Is very important that you take all of the antibiotics as prescribed and follow-up with a dental provider for definitive care of your dental issues. Referrals: [facility] [Provider Group] Discharge Data Discharge Date/Time-TO BE ENTERED AT DEPARTURE: 10/17/22 14:58 Medical Decision Making exam consistent with gingivitis with possible infection. No signs of abscess. no signs of deep neck space infection ( Retropharyngeal abscess, Daniel's angina, Parapharyngeal space infection, Peritonsillar Abscess ([employer])) or Epiglottitis, No signs of trigeminal neuralgia. Pt non toxic and stable. they should encourage to continue over the counter therapy and follow up with dental provider as soon as possible for definitive care of Dental complaint. Patient placed on chlorhexidine mouthwash and penicillin for possible early abscess. After discussion of diagnosis and plan of care patient has no further needs, questions, or concerns and states clear understanding to return to the emergency department for any worsening symptoms. This documentation was generated using DxTer[employer] system, please disregard any oddities of phrase or misspellings. HPI General Mode of arrival: ambulatory . Date/Time Provider Initiated Documentation: 10/17/22 14:46 . Limitations to Documentation: no limitations . Information obtained by: patient and RN notes reviewed . History of Present Illness 37 year old M presents to the emergency department with the chief complaint of Left lower jaw pain, described as moderate and severe, Quality is described as aching and sharp, and is localized to the face. Patient started experiencing this day(s) (3) and it has been constant. Medication improves symptom(s), Eating worsens symptoms (With injury to left lower gumline) . Patient notes no other symptoms.. Patient did receive the following treatments prior to arrival, NSAID Related Data Home Medications Medication Instructions Recorded Confirmed acetaminophen 500 mg tablet 1,000 mg PO QID PRN 07/05/20 10/17/22 ibuprofen 200 mg tablet 600 mg PO Q6H PRN 07/05/20 10/17/22 chlorhexidine gluconate 0.12 % 15 ml mucous membrane BID 2 weeks 10/17/22 mouthwash #473 mL penicillin V potassium 500 mg 500 mg PO QID 7 days #28 tabs 10/17/22 tablet Previous Rx's Medication Instructions Recorded chlorhexidine gluconate 0.12 % 15 ml mucous membrane BID 2 weeks 10/17/22 mouthwash #473 mL penicillin V potassium 500 mg 500 mg PO QID 7 days #28 tabs 10/17/22 tablet Allergies Allergy/AdvReac Type Severity Reaction Status Date / Time No Known Allergies Allergy Verified 10/17/22 14:37 General Stated Complaint: DentalOral THAIS: 4 Review of Systems Constitutional Constitutional: Denies chills and Denies fever(s) ENT Ears, Nose, Mouth, and Throat: Reports as per HPI, Denies change in voice, Reports dental pain, Denies dysphagia, Denies throat swelling and Denies tongue swelling Cardiovascular Cardiovascular: Denies chest pain and Denies dyspnea Respiratory Respiratory: Denies dyspnea, Denies stridor and Denies wheezing Gastrointestinal Gastrointestinal: Denies abdominal pain, Denies dysphagia, Denies nausea and Denies vomiting Integumentary/Breasts Skin/Breast: Denies rash Allergic/Immunologic Allergic/Immunologic: Denies throat swelling, Denies tongue swelling and Denies wheezing PFSH All Active Problems Gingivitis (Acute) Dental infection (Acute) Crushing injury of right thumb (Acute 12/23/18) Rotator cuff tendinitis (Acute 08/31/15) Scapular dyskinesis (Acute 08/31/15) Medical History Seasonal allergic rhinitis Family History Mother Substance abuse Heart disease Father No problems noted. Sister No problems noted. Brother No problems noted. Daughter No problems noted. Daughter No problems noted. Social History Smoking/Tobacco Use Status: Current every day Tobacco Type: cigarettes Smoking risk assessment performed?: Yes Alcohol Intake: current Alcohol Intake frequency: a few times a month Drug use: Occasionally Substance use type: former substance user Date of last use: 2016 - percocet and marijuana Counseling given: Yes Current gender identity: male Do you feel safe at home: Yes Do you feel safe in your relationship?: Yes Exam Const General: cooperative Orientation: alert, awake and oriented x3 Limitations: mental status not altered HENPA Head: normal to inspection, normocephalic and atraumatic Ears: hearing grossly normal bilaterally, normal mastoids bilaterally and no periauricular adenopathy General nose exam: external nose normal Mouth: oropharynx normal, no drooling, no muffled voice, normal tongue and no trismus Teeth and gingiva: caries, gingiva abnormal hypertrophic, diffusely erythematous and tender, poor dentition and other (Multiple missing teeth especially teeth 17 1819 and 20) Throat: posterior oropharynx normal, tonsils normal and uvula midline Eyes General: appearance normal, both eyes and all related structures Pupils: PERRL Neck Neck: normal visual inspection, full ROM, no lymphadenopathy, no meningeal signs, trachea midline, supple, no anterior neck swelling and no midline deformity Resp Effort & Inspection: normal respiratory effort and able to speak in complete sentences Course Vital Signs Vital signs: Vital Signs Temperature 36.7 C 10/17/22 14:32 Pulse 64 10/17/22 14:32 Respiratory Rate 16 10/17/22 14:32 Blood Pressure 124/75 10/17/22 14:32 Pulse Oximetry 96 10/17/22 14:32 Temperature 36.7 C 10/17/22 14:32 Temperature Source Skin 10/17/22 14:32 Pulse 64 10/17/22 14:32 Respiratory Rate 16 10/17/22 14:32 Blood Pressure 124/75 10/17/22 14:32 Blood Pressure Position Sitting 10/17/22 14:32 Pulse Oximetry 96 10/17/22 14:32 Oxygen Delivery Method Room Air 10/17/22 14:32 Oxygen Flow Rate 0 10/17/22 14:32
== END 2022-10-17 14:58 | disposition home or self-care (01) ==
PROVIDERS: Emergency Provider Nurse Practitioner Family; PCP Family Medicine
DX: K05.00 Acute gingivitis, plaque induced (principal)
CPT/HCPCS: 99283; 99284

== ENCOUNTER 2023-09-16 17:23 | Emergency (ER) | payer SELFPAY ==
[2023-09-16] VITALS (8 sets, daily range): BP systolic 117–143; BP diastolic 64–80; PULSE 58–69; RESP 11–21; TEMP 36.6–36.7; O2SAT 97–98
--- NOTE | 2023-09-16 17:15 | RT.EKG_ITS ---
APPROVED REPORT Exam: Resting ECG Reason for Exam: chest burning sensation Patient Location: E HR:58 bpm ECG Measurements Heart Rate 58 AXIS MI 142 P 80 QRSd 78 QRS 76 QT 381 T 63 QTc 374 Conclusion Sinus bradycardia 58 normal axis no stemi
--- NOTE | 2023-09-16 18:00 | DI.RAD_ITS ---
Exam(s) XR PORTABLE CHEST AP EXAM: XR PORTABLE CHEST AP CLINICAL HISTORY: chest pain TECHNIQUE: 2D digital imaging was performed. COMPARISON: CR RIGHT SHOULDER COMPLETE from 08/16/2015 FINDINGS: LUNGS: Clear. No pleural abnormality seen. HEART: Normal size. AORTA: Normal diameter. BONES: Unremarkable for age. Soft tissues: Unremarkable. IMPRESSION: No acute findings. DATA REPOSITORY: RADIATION DOSE DELIVERED:
[2023-09-16 18:11] LABS: Abs Immature Grans 0.01 10^3/uL (0.0-0.06); Absolute Basophil Count 0.08 10^3/uL (0.0-0.2); Absolute Eosinophil Count 0.33 10^3/uL (0.0-0.7); Absolute Lymphocyte Count 3.47 10^3/uL (1.2-3.4); Absolute Monocyte Count 0.82 10^3/uL (0.1-0.8); Absolute Neutrophil Count 3.74 10^3/uL (1.2-6.7); Basophils % 0.9 %; Eosinophils % 3.9 %; HCT 45.3 % (40.0-50.0); HGB 15.7 g/dL (13.5-17.5); Immature Grans % 0.1 %; Lymphocytes % 41.1 %; MCH 30.3 pg (27.0-33.0); MCHC 34.7 % (32.0-36.0); MCV 87 fL (80-95); Monocytes % 9.7 %; Neutrophils % 44.3 %; Platelet Count 215 10^3/uL (130-400); RBC 5.19 10^6/uL (4.36-5.78); RDW-SD 41.5 fL; WBC 8.45 10^3/uL (4.4-10.8)
[2023-09-16] MEDS: Ketorolac 15 MG/ML VIAL 10 MG IVP (18:19)
[2023-09-16] MEDS: Famotidine 20 MG TAB PO (18:19)
[2023-09-16 18:33] LABS: ALT 20 U/L (16-63); AST 12 U/L (15-37); Albumin 4.4 g/dL (3.4-5.0); Alkaline Phosphatase 78 U/L (46-116); Anion Gap 8.6 mmol/L (3-11); BUN 17 mg/dL (7-18); Bilirubin, Total 0.7 mg/dL (0.2-1.0); CO2 28.4 mmol/L (21.0-32.0); CREATININE 0.9 mg/dL (0.70-1.30); Calcium 8.8 mg/dL (8.5-10.1); Chloride 104 mmol/L (98-107); Estimated GFR 110.73 (mL/min/1.73m2); Glucose 96 mg/dL (74-106); Magnesium 2.3 mg/dL (1.8-2.4); Potassium 3.8 mmol/L (3.5-5.1); Sodium 141 mmol/L (136-145); Total Protein 7.7 g/dL (6.4-8.2); Troponin I < 50 ng/L (< or =60)
[2023-09-16 19:44] LABS: Bilirubin Negative (Negative); Blood Moderate (Negative); Clarity Clear (Clear); Glucose Negative (Negative); Ketones 15 mg/dL (Negative); Leukocyte Esterase Negative (Negative); Nitrite Negative (Negative)
--- NOTE | 2023-09-16 19:45 | DI.CT_ITS ---
Exam(s) CT ABDOMEN PELVIS WO EXAM: CT ABDOMEN PELVIS WO CLINICAL HISTORY: FLANK PAIN. TECHNIQUE: Imaging Protocol: Axial computed tomography images with coronal and sagittal reformatted images were created and reviewed. Oral: yes / no COMPARISON: CT RENAL COLIC WO CONTRAST from 01/26/2017 FINDINGS: Lung Bases: No acute findings. Liver: Normal density. No suspicious mass. Gallbladder and biliary tract: No radiodense calculus or biliary dilation. Pancreas: Normal density, no abnormal calcifications or inflammatory process. Spleen: Normal. Kidneys: Normal size, contour and axis. No radiodense stones or obstructive uropathy. No suspicious m asses seen. Adrenal glands: No masses seen. Lymph nodes: Within normal limits. Vasculature: Abdominal aorta non-dilated. Soft tissues: Unremarkable. Bladder: No wall thickening. No mass or calculi. Bowel: No obstruction or bowel wall thickening. Diverticulosis. No evidence of diverticulitis. Ap pendix normal. Moderate to increased quantity of stool. Peritoneal cavity: No ascites, collection or mesenteric inflammatory response. Reproductive organs: Unremarkable. Bones: Unremarkable for age. IMPRESSION: No acute abnormality in the abdomen or pelvis. RADIATION DOSE DELIVERED: 850.57mGy.cm Total DLP DATA REPOSITORY: All CT scans at this facility are submitted to the National Radiology Data Registry (NRDR) Dose Index Registry (DIR) with the [employer] (ACR). RADIATION OPTIMIZATION: All CT scans at this facility use at least one of these dose optimization te chniques: automated exposure control; mA and/or kV adjustment per patient size (includes targeted exa ms where dose is matched to clinical indication); or iterative reconstruction.
[2023-09-16 19:51] LABS: WBC 0-2 HPF (0-5)
[2023-09-16 19:52] LABS: Bacteria Few HPF (Negative); C & S Indicated? No; Casts 0-2 Coarse Granular LPF (Negative); Crystals Negative HPF (Negative); Epithelial Cells Negative HPF (Negative); Mucus Trace (Negative)
--- NOTE | 2023-09-16 20:33 | ED.GENADUL_ITS ---
Discharge Plan Disposition Patient Disposition: Home Condition: Stable Discharge Details Clinical Impression: Chest pain Primary Care Provider: Yosvany Perez ED Provider: Benjie Cedeno Home Meds and New Rx's Prescriptions: No Action No Known Home Meds Discharge Instructions Instructions: Chest Pain (ED) Additional Instructions: Take Motrin every 6 hours to help with symptoms. Blood work and CT imaging are very reassuring today. Stand Alone Forms: Work Release HPI General Date/Time Provider Initiated Documentation: 09/16/23 17:42 . Limitations to Documentation: no limitations . Information obtained by: patient . HPI Narrative: 38-year-old gentleman with past medical history of prior drug abuse presents for evaluation of left-sided chest pain. He reports that it started 2 days ago when he reached up to turn off a light. He reports onset of pain that radiates around to the left side. It is severe, intermittent. He says it comes and goes. It is not associated with nausea vomiting or shortness of breath . He reports THC use, denies alcohol use or other drug use. He denies cough or fever. Related Data Home Medications Medication Instructions Recorded Confirmed Unknown [No Known Home Meds] 09/16/23 09/16/23 Allergies Allergy/AdvReac Type Severity Reaction Status Date / Time No Known Allergies Allergy Verified 09/16/23 17:36 General Stated Complaint: Chest Pain THAIS: 2 Exam Narrative Exam Narrative: Review of Systems: All systems reviewed & are unremarkable except as noted in HPI and below Well-developed, crying NCAT PERRL, normal conjunctiva RRR, no murmur, no chest wall tenderness Unlabored respiratory effort, clear bilaterally Nondistended abdomen, nontender, no CVAT tenderness Extremities w/o deformity, no cyanosis, no edema No rashes or lesions. no focal neurologic deficits Appropriate mood and affect Course Vital Signs Vital signs: Vital Signs Respiratory Rate 11 L 09/16/23 17:27 Temperature 36.6 C 09/16/23 17:40 Temperature Source Temporal Artery Scan 09/16/23 17:40 Pulse 58 L 09/16/23 17:46 Pulse 59 L 09/16/23 17:46 Respiratory Rate 12 09/16/23 17:46 Respiratory Effort Labored 09/16/23 17:33 Respiratory Depth Normal 09/16/23 17:33 Respiratory Pattern Normal 09/16/23 17:33 Blood Pressure 117/64 09/16/23 17:46 Blood Pressure Mean 79 09/16/23 17:46 Blood Pressure Position Supine 09/16/23 17:29 Pulse Oximetry 97 09/16/23 17:46 Oxygen Delivery Method Room Air 09/16/23 17:29 Oxygen Flow Rate 0 09/16/23 17:29 Pain Level 2 09/16/23 18:49 Lab/Test Results Lab/Test Results: Laboratory Tests Range/Units 09/16/23 09/16/23 17:40 19:28 WBC (4.4-10.8) 10^3/uL 8.45 RBC (4.36-5.78) 10^6/uL 5.19 Hgb (13.5-17.5) g/dL 15.7 Hct (40.0-50.0) % 45.3 MCV (80-95) fL 87 MCH (27.0-33.0) pg 30.3 MCHC (32.0-36.0) % 34.7 RDW (11.8-14.1) % 13.0 Plt Count (130-400) 10^3/uL 215 MPV (8.0-11.0) fL 10.0 Immature Gran % % 0.1 Neutrophils % % 44.3 Lymphocytes % % 41.1 Monocytes % % 9.7 Eosinophils % % 3.9 Basophils % % 0.9 Nucleated RBC % (0.0-0.3) % 0.0 Absolute Neutrophils (1.2-6.7) 10^3/uL 3.74 Absolute Lymphocytes (1.2-3.4) 10^3/uL 3.47 H Absolute Monocytes (0.1-0.8) 10^3/uL 0.82 H Absolute Eosinophils (0.0-0.7) 10^3/uL 0.33 Absolute Basophils (0.0-0.2) 10^3/uL 0.08 Sodium (136-145) mmol/L 141 Potassium (3.5-5.1) mmol/L 3.8 Chloride (98-107) mmol/L 104 Carbon Dioxide (21.0-32.0) mmol/L 28.4 Anion Gap (3-11) mmol/L 8.6 BUN (7-18) mg/dL 17 Creatinine (0.70-1.30) mg/dL 0.9 Est GFR (CKD-EPI 2020) (mL/min/1.73m2) 110.73 Glucose (74-106) mg/dL 96 Calcium (8.5-10.1) mg/dL 8.8 Magnesium (1.8-2.4) mg/dL 2.3 Total Bilirubin (0.2-1.0) mg/dL 0.7 AST (15-37) U/L 12 L ALT (16-63) U/L 20 Alkaline Phosphatase (46-116) U/L 78 Troponin I (< or =60) ng/L < 50 Total Protein (6.4-8.2) g/dL 7.7 Albumin (3.4-5.0) g/dL 4.4 Urine Color (Yellow) Yellow Urine Clarity (Clear) Clear Urine pH (5-8) 7.0 Ur Specific [place] (1.005-1.025) 1.020 Urine Protein (Neg-Trace) mg/dL Trace Urine Ketones (Negative) mg/dL 15 H Urine Blood (Negative) Moderate H Urine Nitrite (Negative) Negative Urine Bilirubin (Negative) Negative Urine Urobilinogen (Up to 0.2) mg/dL 1.0 H Ur Leukocyte Esterase (Negative) Negative Urine RBC (0-2) HPF 5-10 H Urine WBC (0-5) HPF 0-2 Ur Epithelial Cells (Negative) HPF Negative Urine Crystals (Negative) HPF Negative Urine Bacteria (Negative) HPF Few Urine Casts (Negative) LPF 0-2 Coarse Granular Urine Mucus (Negative) Trace Ur Culture Indicated? No Urine Glucose (Negative) mg/dL Negative Medical Decision Making Emergent evaluation of left-sided chest pain. All of the patient can be describing some flank pain. He is not very descriptive. He is crying but he seems a little disheveled. His EKG does not demonstrate acute ischemic changes otherwise suspicion for an acute cardiopulmonary etiology. Lab work reviewed, no evidence of significant abnormality. A urinalysis was obtained and this did have some slight hematuria. Given his severe intermittent symptoms, perhaps consider renal colic. So CT scan was ordered. CT imaging did not reveal any abnormality. Recommended patient take Motrin every 6 hours for persistent pain. Follow-up with PCP as needed. Return precautions advised. Discharged in good condition. Quality:[facility] Health Related Social Needs: No Data to Display PFSH All Active Problems (Updated 09/16/23 @ 21:20 by Benjie Cedeno MD) Chest pain (Acute) Dental infection (Acute) Crushing injury of right thumb (Acute 12/23/18) Rotator cuff tendinitis (Acute 08/31/15) Scapular dyskinesis (Acute 08/31/15) Medical History (Updated 09/16/23 @ 21:20 by Benjie Cedeno MD) Seasonal allergic rhinitis Family History Mother Substance abuse Heart disease Father No problems noted. Sister No problems noted. Brother No problems noted. Daughter No problems noted. Daughter No problems noted. Social History Smoking/Tobacco Use Status: Current every day Tobacco Type: cigarettes Smoking risk assessment performed?: Yes Alcohol Intake: current Alcohol Intake frequency: a few times a month Drug use: Occasionally Substance use type: former substance user Date of last use: 2016 - percocet and marijuana Counseling given: Yes Current gender identity: male Do you feel safe at home: Yes Do you feel safe in your relationship?: Yes
--- NOTE | 2023-09-16 21:28 | DI.VRAD_ITS ---
PROCEDURE INFORMATION: Exam: CT Abdomen And Pelvis Without Contrast Exam date and time: 09/16/2023 8:18 PM Age: 38 years old Clinical indication: Abdominal pain; Other: Flank pain TECHNIQUE: Imaging protocol: Computed tomography of the abdomen and pelvis without contrast. COMPARISON: CT RENAL COLIC WO CONTRAST 01/26/2017 7:56 PM FINDINGS: Liver: Normal. No mass. Gallbladder and bile ducts: Normal. No calcified stones. No ductal dilation. Pancreas: Normal. No ductal dilation. Spleen: Normal. No splenomegaly. Adrenal glands: Normal. No mass. Kidneys and ureters: Normal. No hydronephrosis. Stomach and bowel: Colonic diverticula present. No evidence of acute diverticulitis at this time. Above average stool throughout the colon. Appendix: No evidence of appendicitis. Intraperitoneal space: Unremarkable. No free air. No significant fluid collection. Vasculature: Unremarkable. No abdominal aortic aneurysm. Lymph nodes: Unremarkable. No enlarged lymph nodes. Urinary bladder: Unremarkable as visualized. Reproductive: Unremarkable as visualized. Bones/joints: Unremarkable. No acute fracture. Soft tissues: Unremarkable. IMPRESSION: No acute abnormality identified. Dictated and Authenticated by: Rohit Kelley MD. Ordering:[facility] Pao Resendiz MD
== END 2023-09-16 21:57 | disposition home or self-care (01) ==
PROVIDERS: Emergency Provider Emergency Medicine; PCP Family Medicine
DX: R07.9 Chest pain, unspecified (principal); R00.1 Bradycardia, unspecified; F17.210 Nicotine dependence, cigarettes, uncomplicated
CPT/HCPCS: 80053; 93005; 96374; 99285; 71045; 74176; 81003; 81015; 83735; 84484; 85025; 93010; 99284; J1885

== ENCOUNTER 2024-04-22 07:47 | Emergency (ER) | payer SELFPAY ==
[2024-04-22 07:52] VITALS: BP 135/90; PULSE 78; RESP 16; TEMP 36.4; O2SAT 98
[2024-04-22 07:57] VITALS: BP 140/78; PULSE 70; RESP 16; TEMP 36.4; O2SAT 98
--- NOTE | 2024-04-22 08:10 | ED.GENADUL_ITS ---
Discharge Plan Disposition Patient Disposition: Home Condition: Good Discharge Details Clinical Impression: Dental infection, Abscess, dental Primary Care Provider: Yovsany Perez ED Provider: Holli Santiago Home Meds and New Rx's Prescriptions: New penicillin V potassium 500 mg tablet 500 mg PO TID Qty: 28 0RF ibuprofen 800 mg tablet 800 mg PO Q8H PRN (Reason: pain) Qty: 30 0RF Discharge Instructions Instructions: Abscess Incision and Drainage ED, Tooth Abscess ED Additional Instructions: You have a dental abscess to right upper teeth that was drained here in the emergency department. You are given your first dose of penicillin here, next dose will not be until lunchtime. I have prescribed you penicillin as well as r efilled the 800 mg ibuprofen. Please take the penicillin for the 7 days. Please encourage hydration. Please continue with your mouth rinses and brushing her teeth frequently. Please follow-up with a dentist. As we discussed, without definitive care from a dentist this infection will recur. If you develop fever/chills, increased pain, increased swelling or other new/worsening symptom please seek care urgently once again. Stand Alone Forms: Work Release Referrals: Yosvany Perez MD [Primary Care Provider] - [facility] General Date/Time Provider Initiated Documentation: 04/22/24 08:10 . Limitations to Documentation: no limitations . Information obtained by: patient, RN notes reviewed and old records reviewed . History of Present Illness 39 year old M presents to the emergency department with the chief complaint of right upper dental pain, described as severe and similar to prior episodes, Quality is described as stabbing, and is localized to the face and mouth. Patient reports no radiation. Patient started experiencing this week(s) and it has been constant. No relieving factors improve symptom(s), Eating worsens symptoms . Patient notes no other symptoms.. Patient did receive the following treatments prior to arrival, NSAID Related Data Home Medications ?Medication ?Instructions ?Recorded ?Confirmed ibuprofen 800 mg tablet 800 mg PO Q8H PRN pain #30 tabs 04/22/24 penicillin V potassium 500 mg 500 mg PO TID #28 tabs 04/22/24 tablet Previous Rx's ?Medication ?Instructions ?Recorded ibuprofen 800 mg tablet 800 mg PO Q8H PRN pain #30 tabs 04/22/24 penicillin V potassium 500 mg 500 mg PO TID #28 tabs 04/22/24 tablet Allergies Allergy/AdvReac Type Severity Reaction Status Date / Time No Known Allergies Allergy Verified 04/22/24 08:06 General Stated Complaint: DentalOral THAIS: 4 Review of Systems Constitutional Constitutional: Reports as per HPI, Denies chills, Denies fever(s), Denies headache(s) and Denies poor appetite Eyes Eyes: Denies change in vision ENT Ears, Nose, Mouth, and Throat: Reports as per HPI, Reports dental pain, Denies dysphagia, Denies dry mouth, Denies ear discharge, Denies otalgia, Reports facial pain, Denies headache(s), Denies hoarseness, Denies nasal congestion, Denies odynophagia and Denies sore throat Cardiovascular Cardiovascular: Reports as per HPI and Denies chest pain Respiratory Respiratory: Reports as per HPI and Denies cough Gastrointestinal Gastrointestinal: Reports as per HPI, Denies dysphagia, Denies nausea, Denies odynophagia and Denies vomiting Integumentary/Breasts Skin/Breast: Reports as per HPI, Denies erythema, Denies rash and Denies skin pain Neurologic Neurologic: Reports as per HPI and Denies headache(s) Exam Const General: cooperative, healthy appearing, comfortable, no acute distress, well developed and well groomed Nutritional Appearance: average body habitus and well nourished Orientation: alert and awake [facility] Head: normal to inspection, normocephalic and atraumatic Ears: hearing grossly normal bilaterally, external ears normal and TM's normal bilaterally General nose exam: external nose normal and nares normal Face and sinus: normal facial exam, sinuses nontender and face symmetric Teeth and gingiva: abnormal tooth or associated gingiva (Swelling and fluctuance buccal side #4 tooth) and poor dentition Throat: posterior oropharynx normal, tonsils normal and uvula midline Eyes General: appearance normal, both eyes and all related structures Neck Neck: normal visual inspection, full ROM, no lymphadenopathy, supple and no anterior neck swelling Resp Effort & Inspection: normal respiratory effort, able to speak in complete sentences and no respiratory distress Cardio Rate: regular rate Rhythm: regular rhythm Skin General skin exam: no rashes or lesions noted Trauma: no lacerations or abrasions Neuro General: patient alert and patient awake Cognition: normal cognition Speech: speech normal Gait: normal gait Course Vital Signs Vital signs: Vital Signs Temperature 36.4 C 04/22/24 07:52 Pulse 78 04/22/24 07:52 Respiratory Rate 16 04/22/24 07:52 Blood Pressure 135/90 04/22/24 07:52 Pulse Oximetry 98 04/22/24 07:52 Temperature 36.4 C 04/22/24 07:57 Temperature Source Oral 04/22/24 07:57 Pulse 70 04/22/24 07:57 Respiratory Rate 16 04/22/24 07:57 Respiratory Effort Normal, Non-Labored 04/22/24 07:57 Blood Pressure 140/78 04/22/24 07:57 Blood Pressure Position Sitting 04/22/24 07:57 Pulse Oximetry 98 04/22/24 07:57 Oxygen Delivery Method Room Air 04/22/24 07:57 Oxygen Flow Rate 0 04/22/24 07:52 Procedures Abscess I/D Site: Face (Dental) Side (if applicable): Right Sedation/analgesia: None Local Anesthetic: Bupivicaine 0.25% Amount of anesthesia used (mL): 1 Technique: Incised with #11 Blade Amount of fluid expressed (mL): 4 Irrigation: Yes Packing used?: None Medical Decision Making Patient is a 39-year-old gentleman presented with chief complaint of right upper dental pain that began about 2 weeks ago and has been increasing tickly over the past 3 days. Began noticing a bubble in that area. He states that he has had poor dentition for quite some time and has not had dental insurance to be able to be seen. He is getting dental insurance beginning of next month and plans to see somebody in [place]. He denies any fevers or chills. States that often he is able to open the abscess at home by himself but that this is not different location. No headaches,. States that the pain can radiate slightly along the upper jaw. On exam, patient appears nontoxic. He is hemodynamically stable, afebrile. He has some slight sinus tenderness on the right side but nothing that involves the eye, no erythema or objective swelling in this region. Right ear is normal. No lymphadenopathy. No meningismus. His posterior pharynx is normal with no swelling, uvula is midline, no trismus. He does have a abscess near the #4 tooth. Also has some prominent scar tissue near the #7 which she states is where he typically drains is abscess but this does not appear to be inflamed or fluctuant at this point. All of his discomfort is along the buccal side, no new lingual tenderness or swelling. Patient I discussed treatment options. We discussed her/benefits as well as expected procedural steps of her block and drainage of the abscess. Plan Place patient on antibiotics. Patient I discussed risk/benefits as well as expected procedural steps associated with the procedure. Voiced understanding and wished to proceed. Please see procedure note. Patient tolerated this well. He did get quite anxious around the injection needle, often gives him quite a bit of fear. This did limit the amount of anesthetic that was injected. However, with the incision of the abscess large amount of purulent discharge was able to be expressed and patient had immediate improvement of his pain at the tooth as well as more towards the sinus. He and I discussed continued care. His first dose of antibiotics was given to him here. I refilled his ibuprofen, prescribed him continued penicillin. Give him coupons for both. Strict return precautions were discussed. Patient is calling a dentist to ensure that he is able to get prompt evaluation as soon as he has dental insurance which is scheduled to start May 18. All of his questions and concerns were addressed and he is in agreement this plan. This documentation was generated using [employer] dictation system, please disregard any oddities of phrase or misspellings. Quality:SDOH Health Related Social Needs: No Data to Display PFSH All Active Problems (Updated 04/22/24 @ 08:41 by VICENTA James) Abscess, dental (Acute) Dental infection (Acute) Crushing injury of right thumb (Acute 12/23/18) Rotator cuff tendinitis (Acute 08/31/15) Scapular dyskinesis (Acute 08/31/15) Medical History (Updated 04/22/24 @ 08:41 by VICENTA James) Seasonal allergic rhinitis Family History Mother Substance abuse Heart disease Father No problems noted. Sister No problems noted. Brother No problems noted. Daughter No problems noted. Daughter No problems noted. Social History Smoking/Tobacco Use Status: Former Tobacco Use Quit Date: 11/16/23 Smoking risk assessment performed?: Yes Alcohol Intake: current Alcohol Intake frequency: a few times a month Drug use: Occasionally Substance use type: former substance user Date of last use: 2016 - percocet and marijuana Counseling given: Yes Housing: apartment Current gender identity: male Do you feel safe at home: Yes Do you feel safe in your relationship?: Yes
[2024-04-22] MEDS: Bupivacaine 0.5% Pres-Free 30 ML VIAL (08:23)
[2024-04-22] MEDS: Benzocaine 20% Gel 30 GM JAR MM (08:23)
[2024-04-22] MEDS: Penicillin V POTASSIUM 500 MG TAB PO (08:25)
== END 2024-04-22 08:50 | disposition home or self-care (01) ==
PROVIDERS: Emergency Provider Physician Assistant; PCP Family Medicine
DX: K04.7 Periapical abscess without sinus (principal)
CPT/HCPCS: 10060; J0665

== ENCOUNTER 2024-05-12 14:22 | Emergency (ER) | payer OTHER, SELFPAY ==
[2024-05-12 14:29] VITALS: BP 114/81; PULSE 72; RESP 16; TEMP 36.8; O2SAT 98
--- NOTE | 2024-05-12 15:02 | ED.GENADUL_ITS ---
Discharge Plan Disposition Patient Disposition: Home Condition: Stable Discharge Details Clinical Impression: Rash and other nonspecific skin eruption Primary Care Provider: Yosvany Perez ED Provider: Lavern Nguyen Home Meds and New Rx's Prescriptions: New prednisone 20 mg tablet 60 mg PO DAILY 5 Days Qty: 15 0RF No Action ibuprofen 800 mg tablet 800 mg PO Q8H PRN (Reason: pain) Qty: 30 0RF diphenhydramine HCl [[id number]] 25 mg tablet 75 mg PO Q4H PRN Discharge Instructions Instructions: Skin Rash ED Additional Instructions: Please continue using hypoallergenic soaps, body products, etc. You may continue using benadryl and Eucerin lotion as well in conjunction with the Prednisone that is prescribed to you. As discussed, try doing your laundry elsewhere to determine if the communal laundry in your apartment is the culprit of your rash. Follow-up with your PCP also and return to the Emergency Department with any worsening symptoms or any other concerns. HPI General Date/Time Provider Initiated Documentation: 05/12/24 14:36 . HPI Narrative: The patient is a 39-year-old male without any significant past medical history who comes emergency department for itchy rash all over. The patient reports that 3 weeks ago he developed itchy rash all over his body. Reports he has been taking [id number] Benadryl, applying Eucerin cream and has used a friend's prescribed hydrocortisone. Reports it does help but it does not go away entirely. Reports that he has which all of his body products and laundry soap to the hypoallergenic, scent free, dye free kind but in spite of this it has not helped. Reports that prior to switching new products he has not tried anything new and has not been around anything new or different. He has not eaten anything new or different foods and had not been on any new medications. He denies history of similar type problem in the past. Reports the only thing he can think of is that the communal laundry in his apartment may be the culprit since his neighbors do work at [employer], etc. Reports he does not feel prickly is on his skin like fiberglass would normally make him feel but he was considering it. Related Data Home Medications ?Medication ?Instructions ?Recorded ?Confirmed ibuprofen 800 mg tablet 800 mg PO Q8H PRN pain #30 tabs 04/22/24 05/12/24 diphenhydramine HCl 25 mg tablet 75 mg PO Q4H PRN 05/12/24 05/12/24 ([id number]) prednisone 20 mg tablet 60 mg (3 x 20 mg) PO DAILY 5 days 05/12/24 #15 tabs Previous Rx's ?Medication ?Instructions ?Recorded ibuprofen 800 mg tablet 800 mg PO Q8H PRN pain #30 tabs 04/22/24 prednisone 20 mg tablet 60 mg (3 x 20 mg) PO DAILY 5 days 05/12/24 #15 tabs Allergies Allergy/AdvReac Type Severity Reaction Status Date / Time No Known Allergies Allergy Verified 05/12/24 14:33 General Stated Complaint: RashLesion THAIS: 4 Review of Systems Narrative: Review of systems are negative except as mentioned. Constitutional Constitutional: Denies fever(s) Comments: Reports he feels a little drowsy because of all the Benadryl he has been taking in the past 3 weeks. Eyes Comments: Reports he does have itchiness around his eyes but denies any vision change. ENT Comments: Reports he has itchiness around his ears and all over his face also. Denies itchiness in his mouth, lip or tongue. Cardiovascular Comments: Denies any chest pain or shortness of breath. Respiratory Comments: Denies any cough, wheezing, runny nose or shortness of breath. Gastrointestinal Comments: Denies any abdominal pain, nausea or vomiting. Integumentary/Breasts Comments: Reports he has an itchy rash all over but not including the palms and soles of his feet. Reports he does not include his genital region either. Exam Const General: cooperative Orientation: alert, awake and oriented x3 HENMT Other: I do not appreciate any lesions on his face, around his eyes, ears or scalp. I do see some areas of excoriation around his ears however without overlying erythema or increased warmth to touch. Eyes Other: Pupils are round, equal and reactive. He has no conjunctival injection. He has no eyelid swelling noted bilaterally. Neck Other: Neck is nontender exam without skin lesions noted. Chest Other: No chest wall skin lesions noted. Resp Auscultation: clear to auscultation bilaterally and no wheezes Cardio Rate: regular rate Rhythm: regular rhythm GI Inspection: normal to inspection Palpation: nontender Auscultation: normal bowel sounds Skin Other: Is not appreciate any splotchy erythema to his arms, legs, chest or back but in particular his back he does have superficial excoriations without overlying erythema or increased warmth to touch. I do not appreciate new lesions to the palms of his hands either. Course The patient's physical exam is benign and in fact I do not appreciate any skin lesions present anymore. Patient reports he had just taken the Benadryl which typically helps when he does have the breakouts. Because of the duration of illness and nonresolution of his symptoms in spite of appropriate medication use I talked with the patient about a trial of steroid to which she agrees so prescription for prednisone is sent to his preferred pharmacy. He is asked to continue use of his hypoallergenic products but in the meantime I asked him to consider using a different laundry machine to see if this is truly what is causing his symptom. I asked him to follow-up with his primary care doctor also but urged him to return to the emergency department with any worsening symptoms or any other concerns. Vital Signs Vital signs: Vital Signs Temperature 36.8 C 05/12/24 14:29 Pulse 72 05/12/24 14:29 Respiratory Rate 16 05/12/24 14:29 Blood Pressure 114/81 05/12/24 14:29 Pulse Oximetry 98 05/12/24 14:29 Temperature 36.8 C 05/12/24 14:29 Pulse 72 05/12/24 14:29 Respiratory Rate 16 05/12/24 14:29 Blood Pressure 114/81 05/12/24 14:29 Pulse Oximetry 98 05/12/24 14:29 Pain Level 0 05/12/24 14:29 Medical Decision Making Quality:SDOH Health Related Social Needs: No Data to Display PFSH All Active Problems (Updated 05/12/24 @ 15:02 by Lavern Nguyen DO) Rash and other nonspecific skin eruption (Acute) Abscess, dental (Acute) Dental infection (Acute) Crushing injury of right thumb (Acute 12/23/18) Rotator cuff tendinitis (Acute 08/31/15) Scapular dyskinesis (Acute 08/31/15) Medical History (Updated 05/12/24 @ 15:02 by Lavern Patrick, DO) Seasonal allergic rhinitis Family History Mother Substance abuse Heart disease Father No problems noted. Sister No problems noted. Brother No problems noted. Daughter No problems noted. Daughter No problems noted. Social History Smoking/Tobacco Use Status: Former Tobacco Use Quit Date: 11/16/23 Smoking risk assessment performed?: Yes Alcohol Intake: current Alcohol Intake frequency: a few times a month Drug use: Occasionally Substance use type: former substance user Date of last use: 2016 - percocet and marijuana Counseling given: Yes Housing: apartment Current gender identity: male Do you feel safe at home: Yes Do you feel safe in your relationship?: Yes
== END 2024-05-12 15:41 | disposition home or self-care (01) ==
PROVIDERS: Emergency Provider Emergency Medicine; PCP Family Medicine
DX: R21 Rash and other nonspecific skin eruption (principal)
CPT/HCPCS: 99283

== ENCOUNTER 2024-05-21 10:32 | Emergency (ER) | payer SELFPAY ==
[2024-05-21 10:36] VITALS: BP 112/71; PULSE 62; RESP 18; O2SAT 94
--- NOTE | 2024-05-21 11:01 | ED.GENADUL_ITS ---
Discharge Plan Disposition Patient Disposition: Home Condition: Good Discharge Details Clinical Impression: Dermatographic urticaria Primary Care Provider: Yosvany Perez ED Provider: Vasile Saunders Home Meds and New Rx's Prescriptions: New hydroxyzine HCl 25 mg tablet 25 mg PO QID Qty: 90 0RF No Action ibuprofen 800 mg tablet 800 mg PO Q8H PRN (Reason: pain) Qty: 30 0RF diphenhydramine HCl [Fhzor-K-Dezi] 25 mg tablet 75 mg PO Q4H PRN Discharge Instructions Instructions: Hives Additional Instructions: At this time you still have notable skin hypersensitivity. As we discussed together, please do your best to cut down on the frequency of your showers. Please use a soap that is high in moisturizer content. Please use the Eucerin high intensity moisturizing ointment twice daily over your chest arms and affected areas. Please take the Atarax as prescribed to help with the itching and burning. We have placed a referral with [facility] dermatology for further follow-up. If you notice any worsening of your symptoms, or any new symptoms such as vomiting, diarrhea, fever, chills, shortness of breath, chest pain, numbness, weakness, or fainting , please return immediately to the emergency department for reevaluation. Please follow up with your primary care provider as soon as possible for reassessment and reevaluation. As always, it was a pleasure participating in your medical care today. Referrals: Yosvany Perez MD [Primary Care Provider] - Discharge Data Discharge Date/Time-TO BE ENTERED AT DEPARTURE: 05/21/24 11:15 HPI General Date/Time Provider Initiated Documentation: 05/21/24 10:39 . HPI Narrative: 39-year-old male with no significant past medical history presents today for evaluation of rash. Patient states that for about the last month he has had a notably itchy intermittent rash. It comes and goes, it is intermittently over his chest back arms and legs. No rash in the genital areas. Currently there are only a few small spots. They usually last a few hours and then it resolves with moisturizer. When he comes in contact with cardboard at his work they seem to get worse. He was seen here about 2 weeks ago, no life- threatening etiology noted at that time. He was started on antihistamines and a short burst of steroids. He switched his soap to Dial. He started taking showers from every other day to every day. He has used Eucerin moisturizer which she states is the only thing that helps his symptoms. He denies any dysuria. He denies any history of STDs. Grandfather does have MS however the patient denies any known history of autoimmune conditions, psoriasis or eczema. He denies any oral lesions. He denies any new exposures, new detergents, or new animals. He denies any new foods. He states that his significant other who sleeps with him in the same bed does not have any lesions or rash. Related Data Home Medications ?Medication ?Instructions ?Recorded ?Confirmed ibuprofen 800 mg tablet 800 mg PO Q8H PRN pain #30 tabs 04/22/24 05/21/24 diphenhydramine HCl 25 mg tablet 75 mg PO Q4H PRN 05/12/24 05/21/24 ([id number]) hydroxyzine HCl 25 mg tablet 25 mg PO QID #90 tabs 05/21/24 Previous Rx's ?Medication ?Instructions ?Recorded ibuprofen 800 mg tablet 800 mg PO Q8H PRN pain #30 tabs 04/22/24 hydroxyzine HCl 25 mg tablet 25 mg PO QID #90 tabs 05/21/24 Allergies Allergy/AdvReac Type Severity Reaction Status Date / Time No Known Allergies Allergy Verified 05/21/24 10:38 General Stated Complaint: RashLesion THAIS: 3 Exam Narrative Exam Narrative: 1.Const: Well-nourished, Well-developed, appearing stated age 2.Eyes: PERRL, no conjunctival injection, and symmetrical lids. 3.ENT: Atraumatic external nose and ears. Moist MM. Neck: Symmetric, trachea midline, No thyromegaly. 4.CVS: +S1/S2, Peripheral pulses 2+ and equal in all extremities. Brisk capillary refill in all extremities. 5.RESP: Unlabored respiratory effort. Clear to auscultation bilaterally. No wheezes rales or rhonchi 6.GI: Soft, Nontender/Nondistended, No hepatosplenomegaly. No guarding or rebound. 7.MSK: Normocephalic/Atraumatic, Extremities w/o deformity or ttp No cyanosis or clubbing, Normal movement of all extremities 8.Skin: There are a few very small skin scratch like lesions noted on his arms and 1 or 2 on his back. Minimal erythema. No induration or swelling. A linear scrape was performed with a gloved finger, and about 3 minutes later patient demonstrated notable dermatographia. Negative Nikolsky sign. No large vesicles or bulla. No palpable purpura. No oral lesions. No mucosal lesions. No e vidence of severe cellulitis. No evidence of vaccine preventable rash. 9.Neuro: caser shoe parts II-XII grossly intact. Sensation grossly intact, no focal neurologic deficits. 10.Psych: (AAO) x3. Appropriate mood and affect Course Vital Signs Vital signs: Vital Signs Pulse 62 05/21/24 10:36 Respiratory Rate 18 05/21/24 10:36 Blood Pressure 112/71 05/21/24 10:36 Pulse Oximetry 94 05/21/24 10:36 Pulse 62 05/21/24 10:36 Respiratory Rate 18 05/21/24 10:36 Blood Pressure 112/71 05/21/24 10:36 Blood Pressure Position Sitting 05/21/24 10:36 Pulse Oximetry 94 05/21/24 10:36 Oxygen Delivery Method Room Air 05/21/24 10:36 Oxygen Flow Rate 0 05/21/24 10:36 Medical Decision Making 39-year-old male with no significant past medical history presents today for evaluation of rash. Patient states that for about the last month he has had a notably itchy intermittent rash. It comes and goes, it is intermittently over his chest back arms and legs. No rash in the genital areas. Currently there are only a few small spots. They usually last a few hours and then it resolves with moisturizer. When he comes in contact with cardboard at his work they seem to get worse. He was seen here about 2 weeks ago, no life- threatening etiology noted at that time. He was started on antihistamines and a short burst of steroids. He switched his soap to Dial. He started taking showers from every other day to every day. He has used Eucerin moisturizer which she states is the only thing that helps his symptoms. He denies any dysuria. He denies any history of STDs. Grandfather does have MS however the patient denies any known history of autoimmune conditions, psoriasis or eczema. He denies any oral lesions. He denies any new exposures, new detergents, or new animals. He denies any new foods. He states that his significant other who sleeps with him in the same bed does not have any lesions or rash. Physical exam demonstrates a few very small skin scratch like lesions noted on his arms and 1 or 2 on his back. Minimal erythema. No induration or swelling. A linear scrape was performed with a gloved finger, and about 3 minutes later patient demonstrated notable dermatographia. Negative Nikolsky sign. No large vesicles or bulla. No palpable purpura. No oral lesions. No mucosal lesions. No evidence of severe cellulitis. No evidence of vaccine preventable rash. Signs and symptoms appear clinically consistent with dermatographia. Unfortunately the patient had not had any improvement whatsoever with his symptoms with the diphenhydramine and steroids. He still is notably notably itchy. We will add hydroxyzine. Suspect a notable component of skin dryness and eczema-like component may be contributing. We will recommend daily significant application of moisturizer, transitioning to a soap with high moisturizer content, cutting down on daily showers, and avoidance of significant cardboard products. As the patient had no significant improvement with the antihistamine component, this does bring up potential need for further discussion about Biologics. Will place dermatology referral at [facility]. Patient remains hemodynamically stable otherwise. No other concerning red flags. Patient will be discharged home. I have extensively reviewed the treatment plan and discharge instructions with the patient. I have addressed all patient concerns at this time. The patient was made aware of what symptoms to monitor for that would warrant a return to the emergency department. Discussed the plan with the patient, they demonstrate verbal understanding and agreement with our assessment and plan at this time. The documentation in this chart was dictated using [employer] dictation software. Please excuse any dictation errors. Quality:SDOH Health Related Social Needs: No Data to Display PFSH All Active Problems (Updated 05/21/24 @ 11:02 by Vasile Saunders DO) Dermatographic urticaria (Acute) Rash and other nonspecific skin eruption (Acute) Abscess, dental (Acute) Dental infection (Acute) Crushing injury of right thumb (Acute 12/23/18) Rotator cuff tendinitis (Acute 08/31/15) Scapular dyskinesis (Acute 08/31/15) Medical History (Updated 05/21/24 @ 11:02 by Vasile Saunders DO) Seasonal allergic rhinitis Family History Mother Substance abuse Heart disease Father No problems noted. Sister No problems noted. Brother No problems noted. Daughter No problems noted. Daughter No problems noted. Social History Smoking/Tobacco Use Status: Former Tobacco Use Quit Date: 11/16/23 Smoking risk assessment performed?: Yes Alcohol Intake: former Drug use: Daily Substance use type: former substance user Date of last use: 2016 - percocet and marijuana Counseling given: Yes Housing: apartment Current gender identity: male Do you feel safe at home: Yes Do you feel safe in your relationship?: Yes
[2024-05-21] MEDS: hydrOXYzine HCL 25 MG TAB PO (11:12)
== END 2024-05-21 11:15 | disposition home or self-care (01) ==
LOC: ER 11:21
PROVIDERS: Emergency Provider Student in an Organized Health Care Education/Training Program; PCP Family Medicine
DX: L50.3 Dermatographic urticaria (principal); Z87.891 Personal history of nicotine dependence
CPT/HCPCS: 99283

== ENCOUNTER 2025-03-13 07:29 | Emergency (ER) | payer OTHER, SELFPAY ==
[2025-03-13 07:32] VITALS: BP 154/78; PULSE 61; RESP 16; TEMP 37.4; O2SAT 98
--- NOTE | 2025-03-13 07:38 | W.ED.GENAD ---
Discharge Plan Disposition Patient Disposition: Home Discharge Details Clinical Impression: Dental infection, Gingivitis Primary Care Provider: Yosvany Perez ED Provider: Miguel Grimm [place] Meds and New Rx's Prescriptions: New amoxicillin-pot clavulanate 875-125 mg tablet 1 tab PO BID Qty: 20 0RF Continued ibuprofen 800 mg tablet 800 mg PO Q8H PRN (Reason: pain) Qty: 30 0RF diphenhydramine HCl [Hyfct-L-Lksi] 25 mg tablet 75 mg PO Q4H PRN methadone 5 mg/5 mL solution 6 mg PO DAILY Rx Instructions: @BAART, self reported Discharge Instructions Instructions: Dental Pain Additional Instructions: You are seen in the emergency department for your dental pain. You likely have a dental infection for which you are receiving an antibiotic that you should take as directed. As discussed please return to the emergency department if you cannot eat or drink or develop any worsening pain or swelling. Otherwise please call for dental appointment as soon as possible. For your pain please take medications as follows: 1. Take acetaminophen (Tylenol), 1,000 mg (two 500 mg tabs) every 6 hours [2. Take ibuprofen (Advil), 400 mg every 6 hours.] Discharge Data Discharge Date/Time-TO BE ENTERED AT DEPARTURE: 03/13/25 08:00 HPI General Date/Time Provider Initiated Documentation: 03/13/25 07:38. HPI Narrative: MDM This is an overall very well-appearing normothermic and not tachycardic 39-year-old male with significant odontogenic disease and likely periapical abscess in setting of percussive tenderness and significant gingivitis for which patient will receive prescription of amoxicillin clavulanic acid and discharged with expectant outpatient management. No pain out of proportion to suggest necrotizing soft tissue infection. No brawny edema submentally to suggest Daniel's angina. No trauma to suggest increased risk for dental fracture. Uvula midline so doubt peritonsillar abscess. No history of HIV to suggest increased risk for acute necrotizing ulcerative gingivitis. No bleeding gums to suggest scurvy. No significant facial swelling to suggest deep space infection. No rash to suggest zoster. Good range of motion in neck so I am not suspicious for retropharyngeal abscess. Patient does have phone number to dentist. Patient and I discussed that he should return to the ED if he developed any worsening pain or any facial swelling. Patient understood his return indications. HPI This is a patient with a history of a fractured tooth presenting with persistent pain and abscess formation. The patient reports that the tooth broke off at the gum line, and the gum tissue has started to grow over the area. This issue has been ongoing for several months, causing intermittent pain. The patient typically manages the pain by rinsing with salt water and draining any abscesses that form. On 03/10/2025, the patient developed an abscess which did not respond to the usual treatment of popping and rinsing with salt water. On 03/11/2025, the patient experienced persistent soreness and attempted to alleviate it by draining the abscessand continuing with salt water rinses. Despite these efforts, the patient was unable to sleep on the night of 03/11/2025 due to the pain. By the morning of 03/12/2025, the pain had slightly subsided, but the patient continued with salt water rinses throughout the day. The patient woke up around midnight or 1:00 AM on 03/13/2025 with severe pain and pressure extending upwards from the broken tooth. The last course of antibiotics was in 10/2024. The patient does not currently have a dentist but has recently acquired insurance. The patient had an appointment scheduled at [facility], which was canceled due to the COVID-19 pandemic. Exam General: Well-appearing in no acute distress speaking in complete sentences. Head: Normocephalic, atraumatic. Eye: Extraocular eye movements intact. No conjunctival injection. No scleral icterus. Ear, nose, mouth, throat: Poor dentition with diffuse caries and missing teeth. Patient does have maxillary right sided percussive tenderness. No obvious abscesses. No significant facial swelling. No brawny edema submentally. Uvula midline. Neck: Trachea midline.Good range of motion in neck. Cardiovascular: Well-perfused distal extremities. Respiratory: Nonlabored respiration. Gastrointestinal: Nondistended abdomen. Musculoskeletal: No edema. Moving all 4 extremities spontaneously. Skin: Normal for age and race, grossly normal temperature and turgor. No acute rash. Neurologic: Alert and appropriate, no apparent acute deficits. Related Data Home Medications ?Medication ?Instructions ?Recorded ?Confirmed ibuprofen 800 mg tablet 800 mg PO Q8H PRN pain #30 tabs 04/22/24 03/13/25 diphenhydramine HCl 25 mg tablet 75 mg PO Q4H PRN 05/12/24 03/13/25 ([id number]) amoxicillin 875 mg-potassium 1 tab PO BID #20 tabs 03/13/25 clavulanate 125 mg tablet methadone 5 mg/5 mL oral solution 6 mg PO DAILY 03/13/25 03/13/25 Previous Rx's ?Medication ?Instructions ?Recorded ibuprofen 800 mg tablet 800 mg PO Q8H PRN pain #30 tabs 04/22/24 amoxicillin 875 mg-potassium 1 tab PO BID #20 tabs 03/13/25 clavulanate 125 mg tablet Allergies Allergy/AdvReac Type Severity Reaction Status Date / Time No Known Allergies Allergy Verified 03/13/25 07:35 General Stated Complaint: DentalOral THAIS: 4 Course Vital Signs Vital signs: Vital Signs Temperature 37.4 C 03/13/25 07:32 Pulse 61 03/13/25 07:32 Respiratory Rate 16 03/13/25 07:32 Blood Pressure 154/78 H 03/13/25 07:32 Pulse Oximetry 98 03/13/25 07:32 Temperature 37.4 C 03/13/25 07:32 Temperature Source Oral 03/13/25 07:32 Pulse 61 03/13/25 07:32 Respiratory Rate 16 03/13/25 07:32 Blood Pressure 154/78 H 03/13/25 07:32 Blood Pressure Position Sitting 03/13/25 07:32 Pulse Oximetry 98 03/13/25 07:32 Oxygen Delivery Method Room Air 03/13/25 07:32 Oxygen Flow Rate 0 03/13/25 07:32 Pain Level 6 03/13/25 07:32 PFSH All Active Problems (Updated 03/13/25 @ 07:53 by Miguel Grimm MD) Gingivitis (Acute) Dental infection (Acute) Crushing injury of right thumb (Acute 12/23/18) Rotator cuff tendinitis (Acute 08/31/15) Scapular dyskinesis (Acute 08/31/15) Medical History (Updated 03/13/25 @ 07:53 by Miguel Grimm MD) Seasonal allergic rhinitis Family History Mother Substance abuse Heart disease Father No problems noted. Sister No problems noted. Brother No problems noted. Daughter No problems noted. Daughter No problems noted. Social History Smoking/Tobacco Use Status: Former Tobacco Use Quit Date: 11/16/23 Smoking risk assessment performed?: Yes Alcohol Intake: former Drug use: Daily Substance use type: former substance user Date of last use: 2016 - percocet and marijuana Counseling given: Yes Housing: apartment Current gender identity: male Do you feel safe at home: Yes Do you feel safe in your relationship?: Yes
== END 2025-03-13 08:00 | disposition home or self-care (01) ==
PROVIDERS: Emergency Provider Emergency Medicine; PCP Family Medicine
DX: K04.7 Periapical abscess without sinus (principal); K05.00 Acute gingivitis, plaque induced
CPT/HCPCS: 99283 ×2